=== PATIENT | female | born 1940 | race Caucasian/White ===

== ENCOUNTER 2017-05-12 01:27 | Emergency (ER) | payer MEDICARE ==
[~2017-05-12] VITALS: Ht 172.7 cm; Wt 70.3 kg
[~2017-05-12 01:27] MED LIST: ACET325 PO; ALBU3IS INH; ALBU90I; ALBU90OI INH; ALBU90OI6 INH; ALBUTEROL INH; ALEN70 PO; AMIT25; AMIT25 PO; AMIT50 PO; AMLO10 PO; ASPI81CH PO; AZIT250 PO; BRIM.15SO OU; Brovana15 MCG/2 M INH; CALCNI; CEFU250 PO; CELE200 PO; CHOL10002 PO; Calcarb 600 W-1 EACH PO; ENOX100I SQ; ENOX40I SQ; FENT75TP TOP; FIBE4P PO; FLUSAL1005 IH; FLUSAL2505; FLUT220OIA INH; FOLI1 PO; FURO40 PO; Flunisolide25 ML NS; GUAI600T33 PO; HYDACE5 PO; HYDCHL25; HYDCHL25 PO; HYDSUL200; HYDSUL200 PO; LANS15EC; LANS30EC PO; LATA.005SO OU; LEFL20 PO; METO50 PO; METTREX2.5 PO; MONT10T; MONT10T PO; MULVITMINF PO; OMEP20ER PO; OMEPRAZOLE MAGN20 MG PO; ONDA4ODT MM; OXYACE5T PO; OXYC5 PO; OXYGEN; POTCHL10ER PO; POTCHL20ER; POTCHL20ER PO; PRED1 PO; PRED10 PO; PRED20 PO; PRED5; PROLIA60 MG/1 ML SC; ROPI.25 PO; TRAM50 PO; VITAMIN D2000 UNIT PO; Voltaren100 GM TOP; WARF3 PO; WARF4 PO; WARF5 PO; Xalatan2.5 ML BOTHEYES; ZAFI20 PO; [UNRECOGNIZED DRUG - REMARK]
[2017-05-12] MEDS ORDERED: PRED1 PO (02:53)
== END 2017-05-12 03:35 | disposition home or self-care (01) ==
LOC: ER 01:27
DX: I10 Essential (primary) hypertension (principal); Z88.2 Allergy status to sulfonamides; Z88.8 Allergy status to other drugs, medicaments and biological substances; Z79.899 Other long term (current) drug therapy; Z79.52 Long term (current) use of systemic steroids; Z79.51 Long term (current) use of inhaled steroids; Z79.01 Long term (current) use of anticoagulants
CPT/HCPCS: 99283

== ENCOUNTER 2017-07-21 10:49 | Emergency (ER) | END 2017-07-21 15:33 | disposition home or self-care (01) ==

== ENCOUNTER 2018-02-11 17:35 | Inpatient (IN) | payer MEDICARE ==
[~2018-02-11] VITALS: Ht 172.7 cm; Wt 80.3 kg
[2018-02-11] MEDS ORDERED: ELIQUIS5 MG PO (18:00)
[2018-02-11 18:09] LABS: BASOPHILS ABSOLUTE AUTO 0.02 K/mm3 (0.00-0.23); BASOPHILS PERCENT AUTO 0 % (0-2); EOSINOPHILS ABSOLUTE AUTO 0.06 K/mm3 (0.00-0.68); EOSINOPHILS PERCENT AUTO 1 % (0-6); Hematocrit 46.3 % (33.0-51.0); Hemoglobin 14.7 g/dL (11.5-16.0); IMMATURE GRAN ABSOLUTE AUTO 0.02 K/mm3 (0.00-0.10); IMMATURE GRAN PERCENT AUTO 0 % (0-1); LYMPHOCYTES ABSOLUTE AUTO 0.97 K/mm3 (0.84-5.20); LYMPHOCYTES PERCENT AUTO 12 % (21-46); MONOCYTES ABSOLUTE AUTO 0.35 K/mm3 (0.16-1.47); MONOCYTES PERCENT AUTO 4 % (4-13); Mean Corpuscular HGB 30.2 pg (26.0-34.0); Mean Corpuscular HGB Conc 31.7 g/dL (31.5-36.5); Mean Corpuscular Volume 95 fL (80-100); Mean Platelet Volume 10.9 fL (9.1-12.4); NEUTROPHILS ABSOLUTE AUTO 6.91 K/mm3 (1.96-9.15); NEUTROPHILS PERCENT AUTO 83 % (41-73); Platelet Count 185 K/mm3 (150-400); RDW Coefficient Variation 12.8 % (11.7-14.2); RDW Standard Deviation 45.1 fL (35.1-46.3); Red Blood Cell Count 4.86 M/mm3 (3.80-5.20); White Blood Cell Count 8.33 K/mm3 (4.00-11.30)
[2018-02-11] MEDS ORDERED: STIOLTO RESPIMAT4 GM INH (18:20)
[2018-02-11 18:24] LABS: Alanine Aminotransfer (ALT/SGP 23 U/L (12-78); Albumin, Blood 3.6 g/dL (3.4-5.0); Albumin/Globulin Ratio 0.9 (0.8-1.8); Alk Phos 62 U/L (50-136); Anion Gap 7 mmol/L (6-16); Aspartate Aminotrans (AST/SGOT 23 U/L (12-37); Bilirubin, Total 0.5 mg/dL (0.1-1.0); Blood Urea Nitrogen 22 mg/dL (8-24); Bun/Creatinine Ratio 28.5 (12.0-20.0); CO2, Blood 25 mmol/L (21-32); Chloride, Blood 105 mmol/L (98-108); Creatinine, Blood 0.77 mg/dL (0.40-1.00); Globulin, Blood 3.8 g/dL (2.2-4.0); Glomerular Filtration Rate >60 (60-); Glucose, Blood 138 mg/dL (70-99); Potassium, Blood 4.5 mmol/L (3.5-5.5); Sodium, Blood 137 mmol/L (136-145); Total Protein, Blood 7.4 g/dL (6.4-8.2); Troponin I 0.019 ng/mL (0.000-0.040)
[2018-02-11 22:12] LABS: Adenovirus Not Detected (NOT DETECT); Bordetella pertussis Not Detected (NOT DETECT); Chlamydophila pneumoniae Not Detected (NOT DETECT); Coronavirus 229E Not Detected (NOT DETECT); Coronavirus HKU1 Not Detected (NOT DETECT); Coronavirus NL63 Not Detected (NOT DETECT); Coronavirus OC43 Not Detected (NOT DETECT); Human Metapneumovirus Not Detected (NOT DETECT); Human Rhinovirus/Enterovirus Not Detected (NOT DETECT); Influenza A/2009-H1 Not Detected (NOT DETECT); Influenza A/H1 Not Detected (NOT DETECT); Influenza A/H3 Not Detected (NOT DETECT); Influenza B Not Detected (NOT DETECT); Mycoplasma pneumoniae Not Detected (NOT DETECT); Parainfluenza Virus 1 Not Detected (NOT DETECT); Parainfluenza Virus 2 Not Detected (NOT DETECT); Parainfluenza Virus 3 Not Detected (NOT DETECT); Parainfluenza Virus 4 Not Detected (NOT DETECT); Respiratory Syncytial Virus Not Detected (NOT DETECT)
[2018-02-11] MEDS ORDERED: CALCA400CH PO (22:21)
[2018-02-11 23:30] LABS: Influenza A Not Detected (NOT DETECT)
[2018-02-12 02:44] LABS: Hematocrit 44.4 % (33.0-51.0); Hemoglobin 14.5 g/dL (11.5-16.0); Mean Corpuscular HGB 30.3 pg (26.0-34.0); Mean Corpuscular HGB Conc 32.7 g/dL (31.5-36.5); Mean Corpuscular Volume 93 fL (80-100); Mean Platelet Volume 11.2 fL (9.1-12.4); Platelet Count 158 K/mm3 (150-400); RDW Coefficient Variation 12.7 % (11.7-14.2); RDW Standard Deviation 43.1 fL (35.1-46.3); Red Blood Cell Count 4.79 M/mm3 (3.80-5.20)
[2018-02-12 02:56] LABS: Alanine Aminotransfer (ALT/SGP 19 U/L (12-78); Albumin, Blood 3.1 g/dL (3.4-5.0); Albumin/Globulin Ratio 0.8 (0.8-1.8); Alk Phos 57 U/L (50-136); Anion Gap 9 mmol/L (6-16); Aspartate Aminotrans (AST/SGOT 21 U/L (12-37); Bilirubin, Total 0.6 mg/dL (0.1-1.0); Blood Urea Nitrogen 18 mg/dL (8-24); Bun/Creatinine Ratio 29.1 (12.0-20.0); CO2, Blood 25 mmol/L (21-32); Calcium, Blood 8.9 mg/dL (8.5-10.1); Chloride, Blood 107 mmol/L (98-108); Creatinine, Blood 0.62 mg/dL (0.40-1.00); Globulin, Blood 3.9 g/dL (2.2-4.0); Glomerular Filtration Rate >60 (60-); Glucose, Blood 150 mg/dL (70-99); Sodium, Blood 141 mmol/L (136-145)
[2018-02-12 02:57] LABS: Troponin I 0.384 ng/mL (0.000-0.040)
[2018-02-12 05:34] LABS: International Normalized Ratio 1.32; Prothrombin Time Results 13.4 Sec (9.7-11.5)
[2018-02-12 10:30] LABS: Troponin I 0.339 ng/mL (0.000-0.040)
[2018-02-15 04:05] LABS: Hematocrit 42.9 % (33.0-51.0); Hemoglobin 13.5 g/dL (11.5-16.0); Mean Corpuscular HGB Conc 31.5 g/dL (31.5-36.5); Mean Corpuscular Volume 95 fL (80-100); Mean Platelet Volume 11.2 fL (9.1-12.4); Platelet Count 154 K/mm3 (150-400); RDW Coefficient Variation 13.2 % (11.7-14.2); RDW Standard Deviation 45.6 fL (35.1-46.3); White Blood Cell Count 6.52 K/mm3 (4.00-11.30)
[2018-02-15 04:23] LABS: Anion Gap 7 mmol/L (6-16); Blood Urea Nitrogen 22 mg/dL (8-24); Bun/Creatinine Ratio 29.7 (12.0-20.0); CO2, Blood 27 mmol/L (21-32); Calcium, Blood 8.8 mg/dL (8.5-10.1); Chloride, Blood 105 mmol/L (98-108); Creatinine, Blood 0.74 mg/dL (0.40-1.00); Glomerular Filtration Rate >60 (60-); Glucose, Blood 105 mg/dL (70-99); Potassium, Blood 3.7 mmol/L (3.5-5.5); Sodium, Blood 139 mmol/L (136-145)
[2018-02-15] MEDS ORDERED: METO25ER PO (10:00)
[2018-02-15] MEDS ORDERED: ASPI81CH PO (10:01)
== END 2018-02-15 12:48 | disposition home or self-care (01) | DRG 282 ==
LOC: ER 17:35 → PCU 17:36 → ER 21:42 → PCU 21:42
PROVIDERS: Emergency Medicine; Internal Medicine
PROC: 4A023N7 Measurement of Cardiac Sampling and Pressure, Left Heart, Percutaneous Approach (ICD-10-PCS; principal; 2018-02-14)
PROC: B211YZZ Fluoroscopy of Multiple Coronary Arteries using Other Contrast (ICD-10-PCS; 2018-02-14)
DX: I21.4 Non-ST elevation (NSTEMI) myocardial infarction (principal); I10 Essential (primary) hypertension; R79.89 Other specified abnormal findings of blood chemistry; I48.0 Paroxysmal atrial fibrillation; G25.81 Restless legs syndrome; J45.909 Unspecified asthma, uncomplicated; M06.9 Rheumatoid arthritis, unspecified; J44.9 Chronic obstructive pulmonary disease, unspecified; K21.9 Gastro-esophageal reflux disease without esophagitis
CPT/HCPCS: 36415; 71260; 78452; 80048; 80053; 82550; 83605; 83735; 83880; 84484; 85025; 85027; 85379; 85610; 85730; 87040; 87486; 87581; 87633; 87798; 93005; 93010; 93017; 93306; 93458; 94640; 94760; 96374; 96376; 99152; 99153; 99285-25; A9500; C1769; C1894; G0378; J0706; J1100; J1644; J1956; J2250; J2785; J3010; J7030; Q9967

== ENCOUNTER 2019-02-24 00:30 | Day surgery (SDC) | payer MEDICARE ==
[~2019-02-24 00:30] MED LIST changes: +CALCA400CH PO; +ELIQUIS5 MG PO; +METO25ER PO; +STIOLTO RESPIMAT4 GM INH
== END 2019-02-24 23:24 | disposition home or self-care (01) ==
LOC: WOUND 00:30
DX: L97.522 Non-pressure chronic ulcer of other part of left foot with fat layer exposed (principal); I10 Essential (primary) hypertension; J45.909 Unspecified asthma, uncomplicated; G47.33 Obstructive sleep apnea (adult) (pediatric); G89.4 Chronic pain syndrome; G25.81 Restless legs syndrome; Z88.8 Allergy status to other drugs, medicaments and biological substances; Z88.2 Allergy status to sulfonamides; Z79.899 Other long term (current) drug therapy; Z79.82 Long term (current) use of aspirin
CPT/HCPCS: 87070; 87075; 87077; 87147; 87186; 87205; G0463

== ENCOUNTER 2019-03-08 12:53 | Emergency (ER) | payer MEDICARE ==
[~2019-03-08] VITALS: Ht 172.7 cm; Wt 86.6 kg
[2019-03-08 13:34] LABS: Source, Urine Catheter
[2019-03-08 13:41] LABS: BASOPHILS ABSOLUTE AUTO 0.03 K/mm3 (0.00-0.23); BASOPHILS PERCENT AUTO 0 % (0-2); EOSINOPHILS PERCENT AUTO 1 % (0-6); Hematocrit 45.2 % (33.0-51.0); IMMATURE GRAN ABSOLUTE AUTO 0.07 K/mm3 (0.00-0.10); IMMATURE GRAN PERCENT AUTO 1 % (0-1); LYMPHOCYTES ABSOLUTE AUTO 1.02 K/mm3 (0.84-5.20); LYMPHOCYTES PERCENT AUTO 11 % (21-46); MONOCYTES ABSOLUTE AUTO 1.21 K/mm3 (0.16-1.47); MONOCYTES PERCENT AUTO 13 % (4-13); Mean Corpuscular HGB 29.1 pg (26.0-34.0); Mean Corpuscular Volume 94 fL (80-100); Mean Platelet Volume 10.6 fL (9.1-12.4); NEUTROPHILS ABSOLUTE AUTO 7.25 K/mm3 (1.96-9.15); NEUTROPHILS PERCENT AUTO 75 % (41-73); Platelet Count 179 K/mm3 (150-400); RDW Coefficient Variation 13.5 % (11.7-14.2); RDW Standard Deviation 45.7 fL (35.1-46.3); Red Blood Cell Count 4.81 M/mm3 (3.80-5.20); White Blood Cell Count 9.68 K/mm3 (4.00-11.30)
[2019-03-08 13:53] LABS: Bilirubin, Urine Neg (Neg); Blood, Urine 1+ (Neg); Glucose Qualitative, Urine Neg (Neg); Ketones, Urine Neg (Neg); Leukocyte Esterase, Urine Neg (Neg); Nitrite, Urine Neg (Neg); Protein, Urine 1+ (Neg); Specific Gravity, Urine 1.025 (1.003-1.022); Urobilinogen, Urine NORM (Normal)
[2019-03-08 14:02] LABS: Alanine Aminotransfer (ALT/SGP 14 U/L (12-78); Albumin, Blood 3.4 g/dL (3.4-5.0); Albumin/Globulin Ratio 0.9 (0.8-1.8); Alk Phos 80 U/L (50-136); Anion Gap 6 mmol/L (6-16); Aspartate Aminotrans (AST/SGOT 14 U/L (12-37); Bilirubin, Total 0.8 mg/dL (0.1-1.0); Blood Urea Nitrogen 17 mg/dL (8-24); Bun/Creatinine Ratio 21.7 (12.0-20.0); CO2, Blood 28 mmol/L (21-32); Calcium, Blood 10.1 mg/dL (8.5-10.1); Chloride, Blood 105 mmol/L (98-108); Creatinine, Blood 0.79 mg/dL (0.40-1.00); Globulin, Blood 3.9 g/dL (2.2-4.0); Glomerular Filtration Rate >60 (60-); Glucose, Blood 104 mg/dL (70-99); Sodium, Blood 139 mmol/L (136-145); Total Protein, Blood 7.3 g/dL (6.4-8.2)
[2019-03-08 14:17] LABS: Appearance, Urine Clear (Clear); Color, Urine Yellow (P-Yellow)
[2019-03-08 14:18] LABS: Bacteria Few /hpf; Red Blood Cells, Urine 0-2 /hpf (0-2); Squamous Epithelial Cells Rare /hpf (Few); White Blood Cells, Urine Rare /hpf (0-5)
[2019-03-08] MEDS ORDERED: Norco 5-325 Ta1 EACH PO (16:13)
== END 2019-03-08 16:31 | disposition home or self-care (01) ==
LOC: ER 12:53
PROVIDERS: Emergency Medicine
DX: M54.6 Pain in thoracic spine (principal); J44.9 Chronic obstructive pulmonary disease, unspecified; I10 Essential (primary) hypertension; I48.0 Paroxysmal atrial fibrillation; Z79.899 Other long term (current) drug therapy; Z79.51 Long term (current) use of inhaled steroids; Z79.01 Long term (current) use of anticoagulants; Z79.82 Long term (current) use of aspirin
CPT/HCPCS: 36415; 71046; 72070; 80053; 81001; 85025; 96374; 96375; 99284-25; J1170; J1885; P9612

== ENCOUNTER → 2019-04-04 | Outpatient (CLI) | payer MEDICARE ==
[~2019-04-04] MED LIST changes: +Aspirin EC81 MG PO; +BREO ELLIPTA 11 EACH INH; -METO25ER PO; +Norco 5-325 Ta1 EACH PO; -OMEPRAZOLE MAGN20 MG PO; +OSEL75CA PO; +PRED10; +TOPROL XL25 MG PO
[2019-04-04 18:13] LABS: BASOPHILS ABSOLUTE AUTO 0.02 K/mm3 (0.00-0.23); BASOPHILS PERCENT AUTO 0 % (0-2); EOSINOPHILS ABSOLUTE AUTO 0.02 K/mm3 (0.00-0.68); EOSINOPHILS PERCENT AUTO 0 % (0-6); Hematocrit 42.2 % (33.0-51.0); Hemoglobin 13.2 g/dL (11.5-16.0); IMMATURE GRAN ABSOLUTE AUTO 0.03 K/mm3 (0.00-0.10); IMMATURE GRAN PERCENT AUTO 0 % (0-1); LYMPHOCYTES ABSOLUTE AUTO 0.82 K/mm3 (0.84-5.20); LYMPHOCYTES PERCENT AUTO 12 % (21-46); MONOCYTES ABSOLUTE AUTO 0.55 K/mm3 (0.16-1.47); MONOCYTES PERCENT AUTO 8 % (4-13); Mean Corpuscular HGB 29.1 pg (26.0-34.0); Mean Corpuscular HGB Conc 31.3 g/dL (31.5-36.5); Mean Corpuscular Volume 93 fL (80-100); Mean Platelet Volume 10.5 fL (9.1-12.4); NEUTROPHILS ABSOLUTE AUTO 5.58 K/mm3 (1.96-9.15); NEUTROPHILS PERCENT AUTO 80 % (41-73); Platelet Count 191 K/mm3 (150-400); RDW Coefficient Variation 13.3 % (11.7-14.2); RDW Standard Deviation 45.7 fL (35.1-46.3); Red Blood Cell Count 4.53 M/mm3 (3.80-5.20); White Blood Cell Count 7.02 K/mm3 (4.00-11.30)
== END | disposition home or self-care (01) ==
LOC: LAB SHORT 18:10 → LAB 18:10
PROVIDERS: Physician Assistant Medical
DX: L03.115 Cellulitis of right lower limb (principal)
CPT/HCPCS: 85025

== ENCOUNTER 2019-04-07 08:10 | Observation (INO) | payer MEDICARE ==
[~2019-04-07] VITALS: Ht 172.7 cm; Wt 85.9 kg
[~2019-04-07 08:10] MED LIST changes: -BREO ELLIPTA 11 EACH INH; -OSEL75CA PO; -PRED10
[2019-04-07 08:57] LABS: BASOPHILS ABSOLUTE AUTO 0.01 K/mm3 (0.00-0.23); BASOPHILS PERCENT AUTO 0 % (0-2); EOSINOPHILS ABSOLUTE AUTO 0.01 K/mm3 (0.00-0.68); EOSINOPHILS PERCENT AUTO 0 % (0-6); Hematocrit 42.9 % (33.0-51.0); Hemoglobin 13.2 g/dL (11.5-16.0); IMMATURE GRAN ABSOLUTE AUTO 0.02 K/mm3 (0.00-0.10); IMMATURE GRAN PERCENT AUTO 0 % (0-1); LYMPHOCYTES ABSOLUTE AUTO 0.81 K/mm3 (0.84-5.20); LYMPHOCYTES PERCENT AUTO 17 % (21-46); MONOCYTES ABSOLUTE AUTO 0.68 K/mm3 (0.16-1.47); MONOCYTES PERCENT AUTO 14 % (4-13); Mean Corpuscular HGB 29.3 pg (26.0-34.0); Mean Corpuscular HGB Conc 30.8 g/dL (31.5-36.5); Mean Corpuscular Volume 95 fL (80-100); Mean Platelet Volume 10.4 fL (9.1-12.4); NEUTROPHILS ABSOLUTE AUTO 3.36 K/mm3 (1.96-9.15); NEUTROPHILS PERCENT AUTO 69 % (41-73); Platelet Count 124 K/mm3 (150-400); RDW Coefficient Variation 13.1 % (11.7-14.2); Red Blood Cell Count 4.51 M/mm3 (3.80-5.20); White Blood Cell Count 4.89 K/mm3 (4.00-11.30)
[2019-04-07 09:17] LABS: Alanine Aminotransfer (ALT/SGP 10 U/L (12-78); Albumin, Blood 3.3 g/dL (3.4-5.0); Albumin/Globulin Ratio 0.8 (0.8-1.8); Alk Phos 81 U/L (50-136); Anion Gap 8 mmol/L (6-16); Aspartate Aminotrans (AST/SGOT 16 U/L (12-37); Bilirubin, Total 0.4 mg/dL (0.1-1.0); Blood Urea Nitrogen 13 mg/dL (8-24); Bun/Creatinine Ratio 17.9 (12.0-20.0); CO2, Blood 25 mmol/L (21-32); Calcium, Blood 9.3 mg/dL (8.5-10.1); Chloride, Blood 105 mmol/L (98-108); Creatinine, Blood 0.73 mg/dL (0.40-1.00); Globulin, Blood 4.3 g/dL (2.2-4.0); Glomerular Filtration Rate >60 (60-); Glucose, Blood 122 mg/dL (70-99); Potassium, Blood 3.6 mmol/L (3.5-5.5); Sodium, Blood 138 mmol/L (136-145); Total Protein, Blood 7.6 g/dL (6.4-8.2); Troponin I 0.022 ng/mL (0.000-0.040)
[2019-04-07 09:41] LABS: Influenza A Positive (NEGATIVE); Influenza B Negative (NEGATIVE)
[2019-04-07] MEDS ORDERED: BREO ELLIPTA 11 EACH INH (12:16)
--- NOTE | 2019-04-07 16:49 | NUR ---
PT ADMITTED FROM ER THIS SHIFT. SHE IS ALERT AND ORIENTED AND ABLE TO EXPRESS ANY NEEDS. PT ABLE TO TRANSFER FROM BED TO BSC WITH JUST SBA. SHE HAS STRESS INCONTINENCE BUT IS ABLE TO GET TO THE COMMODE MOST OF THE TIME. DRESSINGS WERE CHANGES TO HER FEET AT ADMIT AND PICTURES TAKEN AND IN CHART. CALL LIGHT WITHIN REACH.
--- NOTE | 2019-04-08 04:44 | NUR ---
WATER COMMISSIONER SUMMARY PT A/OX4. SLEPT WELL TONIGHT. STANDBY ASSIST UP TO BEDSIDE COMMODE BUT ALSO HAS URINARY URGENCY/INCONTIENCE. PT ON 2L O2 VIA NASAL CANNULA SATTING IN LOW TO MID 90% PT DOES NOT WEAR O2 AT BASELINE. VSS. DRESSING ON FEET C/D/I. NO ACUTE CHANGES. WILL CONTINUE TO MONITOR.
[2019-04-08 05:45] LABS: BASOPHILS PERCENT AUTO 0 % (0-2); EOSINOPHILS PERCENT AUTO 0 % (0-6); Hematocrit 40.7 % (33.0-51.0); Hemoglobin 12.5 g/dL (11.5-16.0); IMMATURE GRAN PERCENT AUTO 0 % (0-1); LYMPHOCYTES ABSOLUTE AUTO 0.33 K/mm3 (0.84-5.20); LYMPHOCYTES PERCENT AUTO 13 % (21-46); MONOCYTES ABSOLUTE AUTO 0.49 K/mm3 (0.16-1.47); MONOCYTES PERCENT AUTO 19 % (4-13); Mean Corpuscular HGB 28.7 pg (26.0-34.0); Mean Corpuscular HGB Conc 30.7 g/dL (31.5-36.5); Mean Corpuscular Volume 93 fL (80-100); Mean Platelet Volume 10.6 fL (9.1-12.4); NEUTROPHILS ABSOLUTE AUTO 1.77 K/mm3 (1.96-9.15); NEUTROPHILS PERCENT AUTO 68 % (41-73); Platelet Count 129 K/mm3 (150-400); RDW Coefficient Variation 13.1 % (11.7-14.2); RDW Standard Deviation 44.8 fL (35.1-46.3); Red Blood Cell Count 4.36 M/mm3 (3.80-5.20); White Blood Cell Count 2.59 K/mm3 (4.00-11.30)
[2019-04-08 06:03] LABS: Alanine Aminotransfer (ALT/SGP 12 U/L (12-78); Albumin/Globulin Ratio 0.8 (0.8-1.8); Alk Phos 69 U/L (50-136); Anion Gap 4 mmol/L (6-16); Aspartate Aminotrans (AST/SGOT 13 U/L (12-37); Bilirubin, Total 0.3 mg/dL (0.1-1.0); Blood Urea Nitrogen 15 mg/dL (8-24); Bun/Creatinine Ratio 24.9 (12.0-20.0); CO2, Blood 29 mmol/L (21-32); Calcium, Blood 9.3 mg/dL (8.5-10.1); Chloride, Blood 104 mmol/L (98-108); Globulin, Blood 3.8 g/dL (2.2-4.0); Glomerular Filtration Rate >60 (60-); Glucose, Blood 110 mg/dL (70-99); Magnesium, Blood 1.9 mg/dL (1.6-2.4); Sodium, Blood 137 mmol/L (136-145); Total Protein, Blood 6.8 g/dL (6.4-8.2)
--- NOTE | 2019-04-08 17:54 | NUR ---
NO ACUTE CHANGES TO PATIENT THIS SHIFT. SHE HAS BEEN UP IN CHAIR AND IS ABLE TO TRANSFER TO BSC. HER COUGH HAS BEEN PRODUCTIVE THIS SHIFT. NO DISTRESS NOTED.
--- NOTE | 2019-04-09 03:41 | NUR ---
SHIFT SUMMARY: 78 Y/O FEMALE RESTED COMFORTABLY ALL SHIFT WHILE WEARING O2 AT 2L/M PER NASAL CANNULA; DENIES PAIN OR NAUSEA; ALERT AND ORIENTED X 4; CALLS FOR ASSISTANCE; BED ALARM APPLIED FOR SAFETY, BED LOW POSITION WITH CALL LIGHT AT SIDE.
[2019-04-09 05:19] LABS: BASOPHILS PERCENT AUTO 0 % (0-2); EOSINOPHILS PERCENT AUTO 0 % (0-6); Hematocrit 39.9 % (33.0-51.0); Hemoglobin 12.3 g/dL (11.5-16.0); IMMATURE GRAN ABSOLUTE AUTO 0.01 K/mm3 (0.00-0.10); IMMATURE GRAN PERCENT AUTO 0 % (0-1); LYMPHOCYTES ABSOLUTE AUTO 0.38 K/mm3 (0.84-5.20); LYMPHOCYTES PERCENT AUTO 13 % (21-46); MONOCYTES ABSOLUTE AUTO 0.52 K/mm3 (0.16-1.47); MONOCYTES PERCENT AUTO 17 % (4-13); Mean Corpuscular HGB 28.9 pg (26.0-34.0); Mean Corpuscular HGB Conc 30.8 g/dL (31.5-36.5); Mean Corpuscular Volume 94 fL (80-100); Mean Platelet Volume 10.6 fL (9.1-12.4); NEUTROPHILS ABSOLUTE AUTO 2.13 K/mm3 (1.96-9.15); NEUTROPHILS PERCENT AUTO 70 % (41-73); Platelet Count 145 K/mm3 (150-400); RDW Coefficient Variation 13.2 % (11.7-14.2); RDW Standard Deviation 44.8 fL (35.1-46.3); Red Blood Cell Count 4.26 M/mm3 (3.80-5.20); White Blood Cell Count 3.04 K/mm3 (4.00-11.30)
[2019-04-09 05:42] LABS: Albumin, Blood 2.8 g/dL (3.4-5.0); Anion Gap 5 mmol/L (6-16); Blood Urea Nitrogen 17 mg/dL (8-24); Bun/Creatinine Ratio 25.9 (12.0-20.0); CO2, Blood 27 mmol/L (21-32); Calcium, Blood 9.2 mg/dL (8.5-10.1); Chloride, Blood 106 mmol/L (98-108); Creatinine, Blood 0.66 mg/dL (0.40-1.00); Glomerular Filtration Rate >60 (60-); Glucose, Blood 119 mg/dL (70-99); Phosphorus, Blood 3.1 mg/dL (2.5-4.9); Potassium, Blood 4.7 mmol/L (3.5-5.5); Sodium, Blood 138 mmol/L (136-145)
[2019-04-09] MEDS ORDERED: PRED10 (11:56)
[2019-04-09] MEDS ORDERED: GUAI600T33 PO (11:58)
[2019-04-09] MEDS ORDERED: OSEL75CA PO (11:59)
--- NOTE | 2019-04-09 13:38 | NUR ---
DISCHARGE PT UP IN CHAIR THIS AM FOR BF, STATE CONTINUING REGISTERED NURSE SURGICAL SERVICES COUGH, FATIGUE HOWEVER STATE FEELING IMPROVED HOPEFUL FOR D/C HOME TODAY. DR ESCAMILLA IN TO SEE HER, PROVIDE D/C ORDERS. [facility] NOTIFIED PT COMING HOME. ORDERS FAXED TO [facility]. IV D/C INTACT. WOUND CARE TO R ANKLE & BETWEEN L BIG/2ND TOE PROVIDED. PRODUCT SAFETY ENGINEER ASSIST PT TO DRESS/GATHER BELONGINGS. RN D/C POLY PACKER AND HEAT SEALER ARRANGE W/C VAN TRANSPORTATION FOR 1400. PT IS PLEASANT, APPRECIATIVE.
--- NOTE | 2019-04-09 15:19 | NUR ---
CONTACTED GVR R/T PRESCRIPTIONS @ [facility], THEY STATE WILL ASSIST PT TO ASSURE SHE WILL BE ABLE TO GEOPHYSICIST MEDICATIONS THIS AFTERNOON OR IN AM @ LATEST.
== END 2019-04-09 14:00 | disposition home or self-care (01) ==
LOC: ER 08:10 → MEDS 08:11 → ER 11:14 → MEDS 11:14 → ENPENDDIS 04-09 11:26 → MEDS 04-09 14:00
PROVIDERS: Emergency Medicine; Family Medicine; Nurse Practitioner Acute Care; ADMIT Hospitalist
DX: J09.X2 Influenza due to identified novel influenza A virus with other respiratory manifestations (principal); J96.01 Acute respiratory failure with hypoxia; J45.901 Unspecified asthma with (acute) exacerbation; I48.20 Chronic atrial fibrillation, unspecified; I10 Essential (primary) hypertension; G25.81 Restless legs syndrome; M06.9 Rheumatoid arthritis, unspecified; I70.235 Atherosclerosis of native arteries of right leg with ulceration of other part of foot; L97.519 Non-pressure chronic ulcer of other part of right foot with unspecified severity; K21.9 Gastro-esophageal reflux disease without esophagitis; Z79.01 Long term (current) use of anticoagulants; Z95.0 Presence of cardiac pacemaker; Z79.899 Other long term (current) drug therapy; Z79.52 Long term (current) use of systemic steroids; Z88.8 Allergy status to other drugs, medicaments and biological substances; Z88.2 Allergy status to sulfonamides
CPT/HCPCS: 36415; 71046; 80053; 80069; 83735; 83880; 84484; 85025; 87804; 93005; 93010; 94640; 94760; 94761; 99285-25; A9270; A9270-GY; G0378; J7512

== ENCOUNTER 2019-04-15 19:26 | Emergency (ER) | payer MEDICARE ==
[~2019-04-15] VITALS: Ht 172.7 cm; Wt 86.6 kg
[~2019-04-15 19:26] MED LIST changes: +BREO ELLIPTA 11 EACH INH; +OSEL75CA PO; +PRED10
[2019-04-15 21:28] LABS: Source, Urine Clean Catch
[2019-04-15 21:33] LABS: Appearance, Urine Cloudy (Clear); Bilirubin, Urine Neg (Neg); Blood, Urine 2+ (Neg); Color, Urine Yellow (P-Yellow); Glucose Qualitative, Urine Neg (Neg); Ketones, Urine Neg (Neg); Leukocyte Esterase, Urine 3+ (Neg); Nitrite, Urine Pos (Neg); Protein, Urine 2+ (Neg); Specific Gravity, Urine 1.025 (1.003-1.022); Urobilinogen, Urine NORM (Normal)
[2019-04-15 21:42] LABS: Bacteria Many /hpf; Red Blood Cells, Urine 0-2 /hpf (0-2); Squamous Epithelial Cells Not Seen /hpf (Few); White Blood Cells, Urine TNTC /hpf (0-5)
[2019-04-15] MEDS ORDERED: CEPH500 PO (21:44)
== END 2019-04-15 22:11 | disposition home or self-care (01) ==
LOC: ER 19:26
PROVIDERS: Physician Assistant
DX: N39.0 Urinary tract infection, site not specified (principal); G89.29 Other chronic pain; Z88.2 Allergy status to sulfonamides; Z88.8 Allergy status to other drugs, medicaments and biological substances; Z79.899 Other long term (current) drug therapy; Z79.52 Long term (current) use of systemic steroids; J45.909 Unspecified asthma, uncomplicated
CPT/HCPCS: 72100; 81001; 87077; 87086; 87186; 96374; 99284-25; A9270-GY; J1885

== ENCOUNTER 2019-04-21 12:08 | Emergency (ER) | payer MEDICARE ==
[~2019-04-21] VITALS: Ht 180.3 cm; Wt 86.6 kg
[~2019-04-21 12:08] MED LIST changes: +CEPH500 PO
[2019-04-21 13:27] LABS: BASOPHILS ABSOLUTE AUTO 0.03 K/mm3 (0.00-0.23); BASOPHILS PERCENT AUTO 0 % (0-2); EOSINOPHILS ABSOLUTE AUTO 0.07 K/mm3 (0.00-0.68); EOSINOPHILS PERCENT AUTO 1 % (0-6); Hematocrit 45.3 % (33.0-51.0); Hemoglobin 14.4 g/dL (11.5-16.0); IMMATURE GRAN ABSOLUTE AUTO 0.06 K/mm3 (0.00-0.10); IMMATURE GRAN PERCENT AUTO 0 % (0-1); LYMPHOCYTES PERCENT AUTO 6 % (21-46); MONOCYTES ABSOLUTE AUTO 1.14 K/mm3 (0.16-1.47); MONOCYTES PERCENT AUTO 8 % (4-13); Mean Corpuscular HGB Conc 31.8 g/dL (31.5-36.5); Mean Platelet Volume 11.1 fL (9.1-12.4); NEUTROPHILS ABSOLUTE AUTO 11.92 K/mm3 (1.96-9.15); NEUTROPHILS PERCENT AUTO 85 % (41-73); Platelet Count 232 K/mm3 (150-400); RDW Coefficient Variation 13.1 % (11.7-14.2); Red Blood Cell Count 4.97 M/mm3 (3.80-5.20); White Blood Cell Count 14.02 K/mm3 (4.00-11.30)
[2019-04-21 13:35] LABS: Mean Corpuscular Volume 91 fL (80-100)
[2019-04-21 13:39] LABS: Alanine Aminotransfer (ALT/SGP 14 U/L (12-78); Albumin, Blood 3.4 g/dL (3.4-5.0); Albumin/Globulin Ratio 0.8 (0.8-1.8); Alk Phos 94 U/L (50-136); Anion Gap 4 mmol/L (6-16); Aspartate Aminotrans (AST/SGOT 13 U/L (12-37); Bilirubin, Total 1.1 mg/dL (0.1-1.0); Blood Urea Nitrogen 21 mg/dL (8-24); CO2, Blood 29 mmol/L (21-32); Calcium, Blood 10.1 mg/dL (8.5-10.1); Chloride, Blood 105 mmol/L (98-108); Creatinine, Blood 0.68 mg/dL (0.40-1.00); Globulin, Blood 4.3 g/dL (2.2-4.0); Glomerular Filtration Rate >60 (60-); Glucose, Blood 120 mg/dL (70-99); Potassium, Blood 4.2 mmol/L (3.5-5.5); Sodium, Blood 138 mmol/L (136-145); Total Protein, Blood 7.7 g/dL (6.4-8.2); Troponin I <0.015 ng/mL (0.000-0.040)
== END 2019-04-21 15:40 | disposition home or self-care (01) ==
LOC: ER 12:08
PROVIDERS: Emergency Medicine
DX: J11.1 Influenza due to unidentified influenza virus with other respiratory manifestations (principal); R53.1 Weakness; J44.9 Chronic obstructive pulmonary disease, unspecified; I10 Essential (primary) hypertension; K21.9 Gastro-esophageal reflux disease without esophagitis; M06.9 Rheumatoid arthritis, unspecified; Z88.2 Allergy status to sulfonamides; Z79.899 Other long term (current) drug therapy
CPT/HCPCS: 36415; 71045; 80053; 83690; 83880; 84484; 85025; 93005; 93010; 99284-25

== ENCOUNTER 2019-05-03 08:17 | Inpatient (IN) | payer MEDICARE ==
[~2019-05-03] VITALS: Ht 172.7 cm; Wt 81.7 kg
[~2019-05-03 08:17] MED LIST changes: +THERA-D2000 UNIT PO; -VITAMIN D2000 UNIT PO
[2019-05-03 09:10] LABS: BASOPHILS ABSOLUTE AUTO 0.02 K/mm3 (0.00-0.23); BASOPHILS PERCENT AUTO 0 % (0-2); EOSINOPHILS ABSOLUTE AUTO 0.11 K/mm3 (0.00-0.68); EOSINOPHILS PERCENT AUTO 1 % (0-6); Hematocrit 43.2 % (33.0-51.0); Hemoglobin 13.2 g/dL (11.5-16.0); IMMATURE GRAN ABSOLUTE AUTO 0.04 K/mm3 (0.00-0.10); IMMATURE GRAN PERCENT AUTO 0 % (0-1); LYMPHOCYTES ABSOLUTE AUTO 0.96 K/mm3 (0.84-5.20); LYMPHOCYTES PERCENT AUTO 8 % (21-46); MONOCYTES ABSOLUTE AUTO 1.37 K/mm3 (0.16-1.47); MONOCYTES PERCENT AUTO 11 % (4-13); Mean Corpuscular HGB 28.4 pg (26.0-34.0); Mean Corpuscular HGB Conc 30.6 g/dL (31.5-36.5); Mean Corpuscular Volume 93 fL (80-100); NEUTROPHILS ABSOLUTE AUTO 10.01 K/mm3 (1.96-9.15); NEUTROPHILS PERCENT AUTO 80 % (41-73); Platelet Count 257 K/mm3 (150-400); RDW Coefficient Variation 13.3 % (11.7-14.2); RDW Standard Deviation 45.3 fL (35.1-46.3); Red Blood Cell Count 4.64 M/mm3 (3.80-5.20); White Blood Cell Count 12.51 K/mm3 (4.00-11.30)
[2019-05-03 09:34] LABS: Alanine Aminotransfer (ALT/SGP 14 U/L (12-78); Albumin, Blood 2.8 g/dL (3.4-5.0); Albumin/Globulin Ratio 0.6 (0.8-1.8); Alk Phos 85 U/L (50-136); Anion Gap 8 mmol/L (6-16); Aspartate Aminotrans (AST/SGOT 12 U/L (12-37); Bilirubin, Total 1.1 mg/dL (0.1-1.0); Blood Urea Nitrogen 18 mg/dL (8-24); CO2, Blood 25 mmol/L (21-32); Calcium, Blood 9.5 mg/dL (8.5-10.1); Chloride, Blood 104 mmol/L (98-108); Creatinine, Blood 0.75 mg/dL (0.40-1.00); Globulin, Blood 4.6 g/dL (2.2-4.0); Glomerular Filtration Rate >60 (60-); Glucose, Blood 130 mg/dL (70-99); Potassium, Blood 3.8 mmol/L (3.5-5.5); Sodium, Blood 137 mmol/L (136-145); Total Protein, Blood 7.4 g/dL (6.4-8.2)
[2019-05-03 11:20] LABS: PCO2 Arterial 26.8 mmHg (35-45); PO2 Arterial 72.8 mmHg (80-100); pH Blood Arterial 7.49 (7.35-7.45)
[2019-05-03 19:45] LABS: International Normalized Ratio 1.43
[2019-05-04 00:37] LABS: Adenovirus Not Detected (NOT DETECT); Bordetella pertussis Not Detected (NOT DETECT); Chlamydophila pneumoniae Not Detected (NOT DETECT); Coronavirus 229E Not Detected (NOT DETECT); Coronavirus HKU1 Not Detected (NOT DETECT); Coronavirus NL63 Not Detected (NOT DETECT); Coronavirus OC43 Not Detected (NOT DETECT); Human Metapneumovirus Not Detected (NOT DETECT); Human Rhinovirus/Enterovirus Not Detected (NOT DETECT); Influenza A/2009-H1 Not Detected (NOT DETECT); Influenza A/H1 Not Detected (NOT DETECT); Influenza A/H3 Not Detected (NOT DETECT); Influenza B Not Detected (NOT DETECT); Mycoplasma pneumoniae Not Detected (NOT DETECT); Parainfluenza Virus 1 Not Detected (NOT DETECT); Parainfluenza Virus 2 Not Detected (NOT DETECT); Parainfluenza Virus 3 Not Detected (NOT DETECT); Parainfluenza Virus 4 Not Detected (NOT DETECT); Respiratory Syncytial Virus Not Detected (NOT DETECT)
[2019-05-04] MEDS ORDERED: Mupirocin22 GM TOP (01:20)
[2019-05-04] MEDS ORDERED: PRED1 PO (01:23)
[2019-05-04] MEDS ORDERED: TRAM50 PO (01:24)
[2019-05-04 03:33] LABS: BASOPHILS ABSOLUTE AUTO 0.02 K/mm3 (0.00-0.23); BASOPHILS PERCENT AUTO 0 % (0-2); EOSINOPHILS PERCENT AUTO 0 % (0-6); Hematocrit 40.4 % (33.0-51.0); Hemoglobin 12.5 g/dL (11.5-16.0); IMMATURE GRAN ABSOLUTE AUTO 0.06 K/mm3 (0.00-0.10); IMMATURE GRAN PERCENT AUTO 0 % (0-1); LYMPHOCYTES ABSOLUTE AUTO 0.54 K/mm3 (0.84-5.20); LYMPHOCYTES PERCENT AUTO 4 % (21-46); MONOCYTES ABSOLUTE AUTO 1.26 K/mm3 (0.16-1.47); MONOCYTES PERCENT AUTO 9 % (4-13); Mean Corpuscular HGB 28.3 pg (26.0-34.0); Mean Corpuscular HGB Conc 30.9 g/dL (31.5-36.5); Mean Corpuscular Volume 92 fL (80-100); NEUTROPHILS ABSOLUTE AUTO 11.82 K/mm3 (1.96-9.15); NEUTROPHILS PERCENT AUTO 86 % (41-73); Platelet Count 204 K/mm3 (150-400); RDW Coefficient Variation 13.2 % (11.7-14.2); RDW Standard Deviation 44.5 fL (35.1-46.3); Red Blood Cell Count 4.41 M/mm3 (3.80-5.20)
[2019-05-04 03:54] LABS: Alanine Aminotransfer (ALT/SGP 12 U/L (12-78); Albumin, Blood 2.5 g/dL (3.4-5.0); Albumin/Globulin Ratio 0.5 (0.8-1.8); Alk Phos 78 U/L (50-136); Anion Gap 6 mmol/L (6-16); Aspartate Aminotrans (AST/SGOT 14 U/L (12-37); Bilirubin, Total 1.1 mg/dL (0.1-1.0); Blood Urea Nitrogen 23 mg/dL (8-24); Bun/Creatinine Ratio 24.7 (12.0-20.0); CO2, Blood 26 mmol/L (21-32); Calcium, Blood 9.5 mg/dL (8.5-10.1); Chloride, Blood 101 mmol/L (98-108); Creatinine, Blood 0.93 mg/dL (0.40-1.00); Globulin, Blood 4.7 g/dL (2.2-4.0); Glomerular Filtration Rate >60 (60-); Glucose, Blood 165 mg/dL (70-99); Potassium, Blood 4.3 mmol/L (3.5-5.5); Sodium, Blood 133 mmol/L (136-145); Total Protein, Blood 7.2 g/dL (6.4-8.2)
[2019-05-04 08:09] LABS: Source, Urine Clean Catch
[2019-05-04 08:26] LABS: Bilirubin, Urine Neg (Neg); Blood, Urine 1+ (Neg); Glucose Qualitative, Urine Neg (Neg); Ketones, Urine Neg (Neg); Leukocyte Esterase, Urine Neg (Neg); Nitrite, Urine Neg (Neg); Protein, Urine Neg (Neg); Urobilinogen, Urine NORM (Normal)
[2019-05-04 08:35] LABS: Appearance, Urine Clear (Clear); Color, Urine Yellow (P-Yellow)
[2019-05-04 08:42] LABS: Bacteria Few /hpf; Red Blood Cells, Urine 0-2 /hpf (0-2); Squamous Epithelial Cells Mod /hpf (Few); White Blood Cells, Urine Not Seen /hpf (0-5)
--- NOTE | 2019-05-04 19:13 | NUR ---
PT. SITTING IN BED DENIES PAIN OR NAUSEA. HEPARIN HAS BEEN STARTED AGAIN PER DR. FLEMING. UA COMPLETE, PT. USING BEDPAN. NO NOTEABLE CHANGES THIS SHIFT.
--- NOTE | 2019-05-05 00:34 | NUR ---
pt had a 9 beat run of v-tach as reported from radio television announcer. pt assessed and no s/sx's noted. pt resting comfortably and in no distress. wctm
[2019-05-05 05:25] LABS: BASOPHILS ABSOLUTE AUTO 0.02 K/mm3 (0.00-0.23); BASOPHILS PERCENT AUTO 0 % (0-2); EOSINOPHILS PERCENT AUTO 0 % (0-6); Hematocrit 37.6 % (33.0-51.0); Hemoglobin 11.6 g/dL (11.5-16.0); IMMATURE GRAN ABSOLUTE AUTO 0.09 K/mm3 (0.00-0.10); IMMATURE GRAN PERCENT AUTO 1 % (0-1); LYMPHOCYTES ABSOLUTE AUTO 0.45 K/mm3 (0.84-5.20); LYMPHOCYTES PERCENT AUTO 4 % (21-46); MONOCYTES ABSOLUTE AUTO 1.23 K/mm3 (0.16-1.47); MONOCYTES PERCENT AUTO 11 % (4-13); Mean Corpuscular HGB 28.1 pg (26.0-34.0); Mean Corpuscular HGB Conc 30.9 g/dL (31.5-36.5); Mean Corpuscular Volume 91 fL (80-100); Mean Platelet Volume 11.2 fL (9.1-12.4); NEUTROPHILS ABSOLUTE AUTO 9.21 K/mm3 (1.96-9.15); NEUTROPHILS PERCENT AUTO 84 % (41-73); Platelet Count 196 K/mm3 (150-400); RDW Coefficient Variation 13.2 % (11.7-14.2); RDW Standard Deviation 44.3 fL (35.1-46.3); Red Blood Cell Count 4.13 M/mm3 (3.80-5.20)
[2019-05-05 05:46] LABS: Anion Gap 4 mmol/L (6-16); Blood Urea Nitrogen 21 mg/dL (8-24); Bun/Creatinine Ratio 30.9 (12.0-20.0); CO2, Blood 27 mmol/L (21-32); Calcium, Blood 9.5 mg/dL (8.5-10.1); Chloride, Blood 106 mmol/L (98-108); Creatinine, Blood 0.68 mg/dL (0.40-1.00); Glomerular Filtration Rate >60 (60-); Glucose, Blood 128 mg/dL (70-99); Potassium, Blood 3.9 mmol/L (3.5-5.5); Sodium, Blood 137 mmol/L (136-145)
--- NOTE | 2019-05-05 06:42 | NUR ---
SUMMARY PT HAD NOTED 9 BEAT RUN OF V-TACH. NO ISSUES RELATED TO V-TACH. PT HAS SLEPT WELL AND HAD NO COMPLAINTS. PT CURRENTLY SLEEPING AND BREATHING EASY. CALL LIGHT IN REACH.
--- NOTE | 2019-05-05 18:04 | NUR ---
1335 PT IV BECAME OCCLUDED. PHARMACY CALLED REGARDING PAUSING HEPARIN. NEW LINE PLACED AT 1410 BY STEVEN LAWTON . NEW RATE STARTED , PHARMACY NOTIFIED AGAIN.
--- NOTE | 2019-05-05 18:04 | NUR ---
Initial spiritual care note: Ms. Curiel was alone in room, awake, and irritable. She told me she felt "like being argumentative" and initially disagreed or dismissed everything I said. 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 She states she has been struggling since November. She reports a yohannes in a God that is loving, but also believes she is being punished. We spoke at length about this and Carmen responded well to gentle yohannes exploration and spiritual direction. She says her niece is her POA, but there is nothing in chart about this. She has a brother in [place]. When asked about her prognosis, Carmen says she has been told she may get "a little better." She admits "this isn't good enough." She denies a fear of and is clear she is tired of suffering. We prayed together for a clear path. I asked palliative care RN to meet with Carmen to clarify her code status. Currently, she is a Full Code which seems to contradict what she actually wants. Face Worker Services will remain available.
--- NOTE | 2019-05-05 18:37 | NUR ---
PT TALKED WITH PALLATIVE CARE ABOUT CHANGING CODE STATUS. WILL FOLLOW UP WITH THEM Thursday05/06/19. NO ACUTE CHANGES TO PT.
--- NOTE | 2019-05-06 07:38 | NUR ---
05/06/19 0600 RN AND HUMAN RESOURCES TEAM MEMBER CHANGED BRIEF OF INCONTINENCE OF URINE. MARTHA-CARE GIVEN. VITALS STABLE. PT STATES SHE SLEPT ON AND OFF LAST NIGHT. TURNED Q 2 HOURS. UNEVENTFUL NIGHT.
--- NOTE | 2019-05-06 08:02 | NUR ---
CHECKED AND VERIFIED HEPARIN DRIP WITH OFFGOING NURSE JESSIE PERDOMO, GTT RUNNING AT 22 UNITS/KG/HR. NO S/SX OF BLEEDING NOTED AT THIS TIME. NEXT PTT TIMED FOR 1300
--- NOTE | 2019-05-06 10:12 | NUR ---
Echocardiogra completed.
--- NOTE | 2019-05-06 15:40 | NUR ---
HEADACHE WITH MOVEMENT. PT C/O SEVERE HEADACHE AFTER TRANSFERING. HEADACHE RESOLVES QUICKLY AFTER RESTING. ISTRATE NOTIFIED. STATED TO CONTINUE TO MONITOR. INSTRUCTED TO STOP IV HEPARIN AND START XARELTO. WILL CONTINUE TO MONITOR.
--- NOTE | 2019-05-06 17:25 | NUR ---
SHIFT SUMMARY PATIENT WITH CONTINUED PAIN IN HER RIGHT SHOULDER; DR. FLEMING ORDERED LIDOCAINE PATCH. PATIENT REPORTS MARKED IMPROVEMENT. PATIENT OUT OF THE BED TO THE CHAIR X2 TIMES TODAY. PATIENT REPORTS THAT SHE PREFERS TO EAT IN THE BED BECAUSE IT IS DIFFICULT FOR HER TO EAT SITTING UP DUE TO KYPHOSIS. SPOKE WITH WENDI QUINTANILLA AND UPDATED HER REGARDING PLAN OF CARE, DR. MARSHALL ALSO NOTIFIED HER OF UPDATES. HEPARIN GTT STOPPED, PATIENT PLACED ON THERAPEUTIC EQUAVALENT DOSE OF XARELTO. HEADACHES SHARP AND INTERMITTENT, OCCUR IN PASSING WITH SUDDEN CHANGE IN POSITION.
--- NOTE | 2019-05-06 18:47 | NUR ---
HEADACHE PATIENT WITH SPLITTING HEADACHE "LIKE A LIGHTNING BOLT" SHARP INTENSE PAIN WITH MOVEMENT FORM THE BED TO THE COMMODE. GOT A SET OF ORTHOSTATIC VITAL SIGNS AND CALLED DR. FLEMING. STAT ESR ORDERED, CONTINUE OFFERING TYLENOL (PATIENT REFUSING IT), AND CONTINUE PREDNISONE DAILY. HEADACHE INTERMITTENT, AND RESOLVED AFTER A FEW MINUTES.
--- NOTE | 2019-05-07 03:32 | NUR ---
SHIFT SUMMARY ASSUMED CARE OF PT AT 1900. PT IS A/O X4, DENIES N/T IN EXTREMITIES. HEART SOUNDS REGULAR, TELE MONITOR SHOWED PACED AT 60, PT DENIES CP AT THIS TIME. LUNG SOUNDS ON THE RIGHT ARE DIMINISHED WITH FINE CRACKLES AT THE BASES, PT WAS ON 1L O2 DURING THE DAY AND REQUESTED THAT SHE BE TAKEN OFF BECUASE SHE THINKS THAT IT IS MAKING HER MORE SICK, PT SATURATIONS HAVE BEEN ABOVE 90% ALL NIGHT, PT C/O SOME SOB. PT DENIES N/V AT THIS TIME, BOWEL TONES HYPERACTIVE. NO ACUTE EVENTS OVER NIGHT. PT STATES THAT SHE HAS NO NEW COMPLAINTS. PT SLEPT T/O THE NIGHT. CALL LIGHT IN REACH, BED IN LOWEST POSTION, WILL CONITNUE TO MONITOR UNTIL DAYSHIFT NURSE ARRIVES.
[2019-05-07 05:38] LABS: Hematocrit 37.2 % (33.0-51.0); Hemoglobin 11.7 g/dL (11.5-16.0); Mean Corpuscular HGB 28.7 pg (26.0-34.0); Mean Corpuscular HGB Conc 31.5 g/dL (31.5-36.5); Mean Corpuscular Volume 91 fL (80-100); Mean Platelet Volume 10.5 fL (9.1-12.4); Platelet Count 226 K/mm3 (150-400); RDW Coefficient Variation 13.4 % (11.7-14.2); RDW Standard Deviation 45.3 fL (35.1-46.3); Red Blood Cell Count 4.08 M/mm3 (3.80-5.20); White Blood Cell Count 7.56 K/mm3 (4.00-11.30)
[2019-05-07 05:50] LABS: Anion Gap 3 mmol/L (6-16); Blood Urea Nitrogen 25 mg/dL (8-24); Bun/Creatinine Ratio 40.9 (12.0-20.0); CO2, Blood 30 mmol/L (21-32); Calcium, Blood 9.7 mg/dL (8.5-10.1); Chloride, Blood 107 mmol/L (98-108); Creatinine, Blood 0.61 mg/dL (0.40-1.00); Glomerular Filtration Rate >60 (60-); Glucose, Blood 104 mg/dL (70-99); Magnesium, Blood 2.1 mg/dL (1.6-2.4); Potassium, Blood 4.2 mmol/L (3.5-5.5); Sodium, Blood 140 mmol/L (136-145)
--- NOTE | 2019-05-07 17:34 | NUR ---
PT IS A/OX3, PLEASANT AND COOPERATIVE, THE PT IS UP TO THE BSC WITH LITTLE ASSISTANCE, THE PT REPORTED FEELING A LITTLE SOB THIS AM AND O2 WAS REAPPLIED PER HER REQUEST FOR COMFORT, THE PT DENIED ANY PAIN SO FAR THIS SHIFT, THE PT WORKED WITH THE PHYSICAL THERAPIST TODAY AND TOLERATED IT WELL, CALL LIGHT IN REACH, WILL CONTINUE TO MONITOR AND ASSESS FOR CHANGES
[2019-05-08 06:23] LABS: BASOPHILS ABSOLUTE AUTO 0.02 K/mm3 (0.00-0.23); BASOPHILS PERCENT AUTO 0 % (0-2); EOSINOPHILS ABSOLUTE AUTO 0.01 K/mm3 (0.00-0.68); EOSINOPHILS PERCENT AUTO 0 % (0-6); Hematocrit 40.1 % (33.0-51.0); Hemoglobin 11.8 g/dL (11.5-16.0); IMMATURE GRAN ABSOLUTE AUTO 0.29 K/mm3 (0.00-0.10); IMMATURE GRAN PERCENT AUTO 4 % (0-1); LYMPHOCYTES ABSOLUTE AUTO 0.91 K/mm3 (0.84-5.20); LYMPHOCYTES PERCENT AUTO 13 % (21-46); MONOCYTES PERCENT AUTO 10 % (4-13); Mean Corpuscular HGB 27.1 pg (26.0-34.0); Mean Corpuscular HGB Conc 29.4 g/dL (31.5-36.5); Mean Corpuscular Volume 92 fL (80-100); Mean Platelet Volume 10.5 fL (9.1-12.4); NEUTROPHILS ABSOLUTE AUTO 5.33 K/mm3 (1.96-9.15); NEUTROPHILS PERCENT AUTO 74 % (41-73); Platelet Count 240 K/mm3 (150-400); RDW Coefficient Variation 13.6 % (11.7-14.2); RDW Standard Deviation 46.4 fL (35.1-46.3); Red Blood Cell Count 4.35 M/mm3 (3.80-5.20); White Blood Cell Count 7.26 K/mm3 (4.00-11.30)
[2019-05-08 06:44] LABS: BASOPHILS PERCENT MAN 0 % (0-2); EOSINOPHILS PERCENT MAN 0 % (0-6); LYMPHOCYTES ABSOLUTE MAN 0.94 K/mm3 (0.84-5.20); LYMPHOCYTES PERCENT MAN 13 % (21-46); METAMYELOCYTE ABSOLUTE MAN 0.07 K/mm3 (0.00-0.00); METAMYELOCYTE PERCENT MAN 1 % (0-0); MONOCYTES ABSOLUTE MAN 0.58 K/mm3 (0.16-1.47); MONOCYTES PERCENT MAN 8 % (4-13); NEUTROPHILS ABSOLUTE MAN 5.66 K/mm3 (1.96-9.15); SEG NEUTROPHILS PERCENT MAN 78 % (41-73); TOTAL CELLS COUNTED 100
--- NOTE | 2019-05-08 07:09 | NUR ---
SHIFT SUMMARY: PATIENT IS A&OX4, NO COMPLIANTS OF PAIN OR DISCOMFORT. UP TO BATHROOM WITH ASSIST OF ONE. VS ARE STABLE. PATIENT STATED SHE DOES NOT THINK THE [facility] IS WORKING WELL FOR HER. A FRIEND BROUGHT THE MEDICATION IN AND ORDER WAS OBTAINED FOR PATIENT TO USE HER HOME MED.
--- NOTE | 2019-05-08 15:08 | NUR ---
SUMMARY PT IS A/O X4, PLEASANT/COOPERATIVE AFFECT T/O DAY. SHE STATE "A LITTLE BIT" SHORT OF BREATH HOWEVER STATES BREATHING CONTINUES TO IMPROVE. LUNGS CLEAR, DECREASED T/O, BIOX 95% 2L. RT ASSISTING w O2 TITRATION/NEBS/RESP MEDS. SHE CONTINUES 100% PACED/TELE, RATE 60'S. PHOTO & WOUND CARE R ANKLE TODAY. SHE APPEARS WEAK/FATIGUED, UP 1 ASSIST TO BSC. SIGNIFICANT KYPHOSIS. HX RA, ESR ELEVATED 39. ISTRATE IN TO SEE HER STATE PERICARDIAL EFFUSION IMPROVED, PLAN FOR SNF. VSS.
--- NOTE | 2019-05-09 03:19 | NUR ---
SHIFT SUMMARY ASSUMED CARE OF PT AT 1900. PT IS A/O X4, DENIES N/T IN EXTREMITIES. HEART SOUNDS REGULAR, TELE MONITOR SHOWS PACED @ 60, DENIES CP AT THIS TIME. LUNG SOUNDS CLEAR, PT STATES THAT SHE HAS SOB SOB WHEN SHE TALKS TOO MUCH OR SHE EATS, PT CURRENTLY ON 2L O2, RT RECCOMENDED TO DAYSHIFT NURSE TO KEEP O2 ON EVEN THOUGH PT IS NORMALLY RA AT BASELINE FOR THE PATIENTS COMFORT, PT AGREED WITH STATEMENT. PT DID NOT GET TO SLEEP UNTIL AFTER MIDNIGHT, THEN PT SLEPT UNTIL IT WAS TIMES FOR MORNING MEDICATIONS. PT STATES THAT SHE IS GOING TO THERAPY AT [facility]. CALL LIGHT IN REACH, BED IN LOWEST POSITION, WILL CONTINUE TO MONITOR UNTIL DAYSHIFT NURSE ARRIVES.
[2019-05-09] MEDS ORDERED: LIDO700A20 TOP (13:02)
[2019-05-09] MEDS ORDERED: ACET325 PO (13:02)
[2019-05-09] MEDS ORDERED: GUAI600T33 PO (13:02)
[2019-05-09] MEDS ORDERED: BENADRYL25 MG PO (13:02)
[2019-05-09] MEDS ORDERED: BENGAY113 GM TOP (13:03)
[2019-05-09] MEDS ORDERED: ONDA4ODT MM (13:03)
[2019-05-09] MEDS ORDERED: TRAZ50 PO (13:04)
[2019-05-09] MEDS ORDERED: Florastor250 MG PO (13:04)
--- NOTE | 2019-05-09 15:03 | NUR ---
1400 POWEGLIDE REMOVED. 1420 HOME O2 EVAL COMPLETED PT DID NOT REQUIRE O2. 1432 PT DISCHARGED TO [facility] VIA W/C TRANSPORT. 1435 REPORT GIVEN TO LN AT [facility]. NO NEW CHANGES OR CONCERN.S
== END 2019-05-09 14:33 | DRG 871 ==
LOC: ER 08:17 → MEDS 08:18 → ENPENDDIS 05-09 12:59 → MEDS 05-09 14:33
PROVIDERS: Emergency Medicine; Family Medicine; Nurse Practitioner Acute Care; ADMIT Internal Medicine
DX: A41.9 Sepsis, unspecified organism (principal); J96.01 Acute respiratory failure with hypoxia; I31.3 Pericardial effusion (noninflammatory); I48.20 Chronic atrial fibrillation, unspecified; I50.32 Chronic diastolic (congestive) heart failure; M06.9 Rheumatoid arthritis, unspecified; K44.9 Diaphragmatic hernia without obstruction or gangrene; J45.909 Unspecified asthma, uncomplicated; Z79.52 Long term (current) use of systemic steroids; Z95.0 Presence of cardiac pacemaker; K21.9 Gastro-esophageal reflux disease without esophagitis; I11.0 Hypertensive heart disease with heart failure; G25.81 Restless legs syndrome; J45.40 Moderate persistent asthma, uncomplicated
CPT/HCPCS: 0099U; 36415; 36600; 71045; 71250; 80048; 80053; 81001; 82803; 83735; 83880; 84145; 84443; 84484; 85025; 85027; 85379; 85610; 85651; 85730; 93005; 93010; 93308; 93321; 94640; 94660; 94760; 94761; 96365-59; 97110; 97163; 97166; 97530; 99285-25; C1751; G0378; J0456; J1644; J7050; J7512; Q0163

== ENCOUNTER 2020-01-04 14:27 | Emergency (ER) | payer MEDICARE, OTHER ==
[~2020-01-04] VITALS: Ht 172.7 cm; Wt 77.6 kg
[~2020-01-04 14:27] MED LIST changes: +BENADRYL25 MG PO; +BENGAY113 GM TOP; +Florastor250 MG PO; +LIDO700A20 TOP; +Mupirocin22 GM TOP; +TRAZ50 PO
[2020-01-04] MEDS ORDERED: CALCIUM CIT 311 EACH PO (15:04)
[2020-01-04] MEDS ORDERED: INCRUSE ELLIPTA 62.5 (15:06)
[2020-01-04] MEDS ORDERED: PRED5 PO (15:07)
[2020-01-04] MEDS ORDERED: TIMO10T (15:07)
[2020-01-04] MEDS ORDERED: ROPINIROLE HC0.25 M1 PO (15:07)
[2020-01-04] MEDS ORDERED: METOPROLOL SUCC25 MG PO (15:08)
[2020-01-04] MEDS ORDERED: BREO ELLIPTA 11 EAC1 IH (15:08)
[2020-01-04] MEDS ORDERED: METHOTREXATE2.5 MG PO (15:08)
[2020-01-04] MEDS ORDERED: FOLI1 PO (15:08)
[2020-01-04 16:42] LABS: BASOPHILS ABSOLUTE AUTO 0.01 K/mm3 (0.00-0.23); BASOPHILS PERCENT AUTO 0 % (0-2); EOSINOPHILS ABSOLUTE AUTO 0.04 K/mm3 (0.00-0.68); EOSINOPHILS PERCENT AUTO 1 % (0-6); Hematocrit 44.9 % (33.0-51.0); Hemoglobin 14.2 g/dL (11.5-16.0); IMMATURE GRAN ABSOLUTE AUTO 0.02 K/mm3 (0.00-0.10); IMMATURE GRAN PERCENT AUTO 0 % (0-1); LYMPHOCYTES ABSOLUTE AUTO 0.75 K/mm3 (0.84-5.20); LYMPHOCYTES PERCENT AUTO 11 % (21-46); MONOCYTES ABSOLUTE AUTO 0.43 K/mm3 (0.16-1.47); MONOCYTES PERCENT AUTO 6 % (4-13); Mean Corpuscular HGB 31.3 pg (26.0-34.0); Mean Corpuscular HGB Conc 31.6 g/dL (31.5-36.5); Mean Corpuscular Volume 99 fL (80-100); Mean Platelet Volume 10.8 fL (9.1-12.4); NEUTROPHILS ABSOLUTE AUTO 5.65 K/mm3 (1.96-9.15); NEUTROPHILS PERCENT AUTO 82 % (41-73); Platelet Count 149 K/mm3 (150-400); RDW Coefficient Variation 14.3 % (11.7-14.2); Red Blood Cell Count 4.54 M/mm3 (3.80-5.20)
[2020-01-04 16:56] LABS: C-REACTIVE PROTEIN, EXT RANGE 0.964 mg/dL (0.000-0.300)
[2020-01-04 16:58] LABS: Alanine Aminotransfer (ALT/SGP 23 U/L (12-78); Albumin, Blood 3.5 g/dL (3.4-5.0); Alk Phos 76 U/L (50-136); Anion Gap 3 mmol/L (6-16); Aspartate Aminotrans (AST/SGOT 21 U/L (12-37); Bilirubin, Total 0.3 mg/dL (0.1-1.0); Blood Urea Nitrogen 29 mg/dL (8-24); Bun/Creatinine Ratio 31.6 (12.0-20.0); CO2, Blood 29 mmol/L (21-32); Calcium, Blood 9.3 mg/dL (8.5-10.1); Chloride, Blood 114 mmol/L (98-108); Creatinine, Blood 0.92 mg/dL (0.40-1.00); Globulin, Blood 3.4 g/dL (2.2-4.0); Glomerular Filtration Rate >60 (60-); Glucose, Blood 105 mg/dL (70-99); Potassium, Blood 4.6 mmol/L (3.5-5.5); Sodium, Blood 146 mmol/L (136-145); Total Protein, Blood 6.9 g/dL (6.4-8.2)
[2020-01-04] MEDS ORDERED: XARELTO15 MG PO (17:23)
== END 2020-01-04 18:30 | disposition home or self-care (01) ==
LOC: ER 14:27
PROVIDERS: Emergency Medicine
DX: I82.531 Chronic embolism and thrombosis of right popliteal vein (principal); K21.9 Gastro-esophageal reflux disease without esophagitis; I10 Essential (primary) hypertension; I48.91 Unspecified atrial fibrillation; Z88.2 Allergy status to sulfonamides; Z88.8 Allergy status to other drugs, medicaments and biological substances; Z79.899 Other long term (current) drug therapy; Z79.52 Long term (current) use of systemic steroids; Z79.01 Long term (current) use of anticoagulants; Z95.0 Presence of cardiac pacemaker
CPT/HCPCS: 73590; 80053; 85025; 85651; 86140; 93971; 99285-25

== ENCOUNTER 2020-01-09 01:21 | Day surgery (SDC) | payer MEDICARE, OTHER ==
[~2020-01-09 01:21] MED LIST changes: +BREO ELLIPTA 11 EAC1 IH; +CALCIUM CIT 311 EACH PO; +INCRUSE ELLIPTA 62.5; +METHOTREXATE2.5 MG PO; +METOPROLOL SUCC25 MG PO; +PRED5 PO; +ROPINIROLE HC0.25 M1 PO; +TIMO10T; +XARELTO15 MG PO
== END 2020-01-09 23:11 | disposition home or self-care (01) ==
LOC: WOUND 01:21
DX: L97.812 Non-pressure chronic ulcer of other part of right lower leg with fat layer exposed (principal); G47.33 Obstructive sleep apnea (adult) (pediatric); I73.9 Peripheral vascular disease, unspecified; I10 Essential (primary) hypertension; J45.909 Unspecified asthma, uncomplicated; Z79.899 Other long term (current) drug therapy; Z88.2 Allergy status to sulfonamides; Z88.8 Allergy status to other drugs, medicaments and biological substances; E03.9 Hypothyroidism, unspecified
CPT/HCPCS: G0463

== ENCOUNTER 2020-01-16 02:01 | Day surgery (SDC) | payer MEDICARE, OTHER | END 2020-01-16 23:19 | disposition home or self-care (01) | LOC: WOUND 02:01 | DX: I96 Gangrene, not elsewhere classified (principal); L97.812 Non-pressure chronic ulcer of other part of right lower leg with fat layer exposed; M19.90 Unspecified osteoarthritis, unspecified site; I48.91 Unspecified atrial fibrillation; I10 Essential (primary) hypertension; J45.909 Unspecified asthma, uncomplicated; G47.33 Obstructive sleep apnea (adult) (pediatric); M81.0 Age-related osteoporosis without current pathological fracture; G89.4 Chronic pain syndrome; G25.81 Restless legs syndrome; I11.0 Hypertensive heart disease with heart failure; I50.9 Heart failure, unspecified; D64.9 Anemia, unspecified; H40.9 Unspecified glaucoma; I49.9 Cardiac arrhythmia, unspecified; E07.9 Disorder of thyroid, unspecified; M06.9 Rheumatoid arthritis, unspecified; Z95.0 Presence of cardiac pacemaker; Z88.2 Allergy status to sulfonamides; Z88.8 Allergy status to other drugs, medicaments and biological substances; Z79.01 Long term (current) use of anticoagulants; Z79.51 Long term (current) use of inhaled steroids; Z79.52 Long term (current) use of systemic steroids; Z79.899 Other long term (current) drug therapy; Z51.5 Encounter for palliative care ==

== ENCOUNTER 2020-01-31 00:30 | Day surgery (SDC) | payer MEDICARE, OTHER | END 2020-01-31 22:39 | disposition home or self-care (01) | LOC: WOUND 00:30 | DX: I96 Gangrene, not elsewhere classified (principal); L97.812 Non-pressure chronic ulcer of other part of right lower leg with fat layer exposed; I11.0 Hypertensive heart disease with heart failure; I50.9 Heart failure, unspecified; E07.9 Disorder of thyroid, unspecified; M10.9 Gout, unspecified; I48.0 Paroxysmal atrial fibrillation; G47.33 Obstructive sleep apnea (adult) (pediatric); J45.909 Unspecified asthma, uncomplicated; M81.0 Age-related osteoporosis without current pathological fracture; G89.4 Chronic pain syndrome; G25.81 Restless legs syndrome; K21.9 Gastro-esophageal reflux disease without esophagitis; D64.9 Anemia, unspecified; I49.9 Cardiac arrhythmia, unspecified; Z79.01 Long term (current) use of anticoagulants; Z79.51 Long term (current) use of inhaled steroids; Z79.52 Long term (current) use of systemic steroids; Z79.899 Other long term (current) drug therapy; Z96.652 Presence of left artificial knee joint; Z88.2 Allergy status to sulfonamides; Z88.8 Allergy status to other drugs, medicaments and biological substances; Z86.718 Personal history of other venous thrombosis and embolism; Z95.0 Presence of cardiac pacemaker ==

== ENCOUNTER 2020-02-14 00:36 | Day surgery (SDC) | payer MEDICARE, OTHER | END 2020-02-14 23:00 | disposition home or self-care (01) | LOC: WOUND 00:36 | DX: I96 Gangrene, not elsewhere classified (principal); L97.812 Non-pressure chronic ulcer of other part of right lower leg with fat layer exposed; I48.0 Paroxysmal atrial fibrillation; I11.0 Hypertensive heart disease with heart failure; I50.9 Heart failure, unspecified; J45.909 Unspecified asthma, uncomplicated; G47.33 Obstructive sleep apnea (adult) (pediatric); M81.0 Age-related osteoporosis without current pathological fracture; G89.4 Chronic pain syndrome; G25.81 Restless legs syndrome; M19.90 Unspecified osteoarthritis, unspecified site; D64.9 Anemia, unspecified; E07.9 Disorder of thyroid, unspecified; M06.9 Rheumatoid arthritis, unspecified; Z95.0 Presence of cardiac pacemaker; Z96.652 Presence of left artificial knee joint; Z88.1 Allergy status to other antibiotic agents; Z88.2 Allergy status to sulfonamides; Z79.01 Long term (current) use of anticoagulants; Z79.899 Other long term (current) drug therapy ==

== ENCOUNTER 2020-02-21 00:30 | Day surgery (SDC) | payer MEDICARE, OTHER | END 2020-02-21 22:58 | disposition home or self-care (01) | LOC: WOUND 00:30 | DX: I96 Gangrene, not elsewhere classified (principal); L97.812 Non-pressure chronic ulcer of other part of right lower leg with fat layer exposed; I48.0 Paroxysmal atrial fibrillation; I11.0 Hypertensive heart disease with heart failure; I50.9 Heart failure, unspecified; E07.9 Disorder of thyroid, unspecified; G47.33 Obstructive sleep apnea (adult) (pediatric); H40.9 Unspecified glaucoma; D64.9 Anemia, unspecified; J45.909 Unspecified asthma, uncomplicated; M81.0 Age-related osteoporosis without current pathological fracture; G89.4 Chronic pain syndrome; G25.81 Restless legs syndrome; M06.9 Rheumatoid arthritis, unspecified; K21.9 Gastro-esophageal reflux disease without esophagitis; Z96.653 Presence of artificial knee joint, bilateral; Z88.2 Allergy status to sulfonamides; Z88.8 Allergy status to other drugs, medicaments and biological substances; Z79.01 Long term (current) use of anticoagulants; Z79.51 Long term (current) use of inhaled steroids; Z79.899 Other long term (current) drug therapy; Z79.52 Long term (current) use of systemic steroids; Z95.0 Presence of cardiac pacemaker ==

== ENCOUNTER 2020-02-28 00:37 | Day surgery (SDC) | payer MEDICARE, OTHER | END 2020-02-28 22:50 | disposition home or self-care (01) | LOC: WOUND 00:37 | DX: L97.812 Non-pressure chronic ulcer of other part of right lower leg with fat layer exposed (principal); G47.33 Obstructive sleep apnea (adult) (pediatric); I73.9 Peripheral vascular disease, unspecified; I10 Essential (primary) hypertension; M06.9 Rheumatoid arthritis, unspecified; I82.531 Chronic embolism and thrombosis of right popliteal vein; Z86.14 Personal history of Methicillin resistant Staphylococcus aureus infection ==

== ENCOUNTER 2020-03-05 08:19 | Day surgery (SDC) | payer MEDICARE, OTHER ==
[~2020-03-05] VITALS: Ht 160 cm; Wt 72.0 kg
[~2020-03-05 08:19] MED LIST changes: -BREO ELLIPTA 11 EACH INH; +LORA10ER PO; +XARELTO20 MG PO
--- NOTE | 2020-03-05 12:44 | NUR ---
PATIENT ARRIVED TO RECOVERY ROOM. ALERT AND RESPONDS APPROPRIATELY TO QUESTIONS. RIGHT GROIN SITE SOFT AND NONTENDER. DRESSING DRY AND INTACT
--- NOTE | 2020-03-05 13:19 | NUR ---
LEFT FEMORAL GROIN SITE SOFT NON-TENDER WITH NO HEMATOMA, NO PULSATILE BLEEDING AND INTACT DRESSING. LEFT DP PULSE 1+. CALL LIGHT IN REACH.
--- NOTE | 2020-03-05 14:57 | NUR ---
PT SITTING IN WC DRESSED, DAUGHTER CALLING FOR [facility] FOR RIDE TO ASSISTED CARE
--- NOTE | 2020-03-05 15:03 | NUR ---
DISCHARGE INSTRUCTIONS GONE OVER WITH PT, RONNY PRESENT. PT VERBALIZES UNDERSTANDING OF INSTRUCTIONS. PT TO TRANSPORTATION PER W/C WITH RONNY.
== END 2020-03-05 14:55 | disposition home or self-care (01) ==
LOC: MHTC 08:19
DX: I70.213 Atherosclerosis of native arteries of extremities with intermittent claudication, bilateral legs (principal); I10 Essential (primary) hypertension; J44.9 Chronic obstructive pulmonary disease, unspecified; Z79.01 Long term (current) use of anticoagulants; Z88.2 Allergy status to sulfonamides; Z79.899 Other long term (current) drug therapy; Z88.8 Allergy status to other drugs, medicaments and biological substances
CPT/HCPCS: 36245; 75625; 75716; 75774; 99152; 99153; C1760; C1769; C1887; C1894; J1644; J2250; J3010; J7030; J7050; Q9967

== ENCOUNTER 2020-03-09 02:11 | Day surgery (SDC) | payer MEDICARE, OTHER | END 2020-03-09 23:55 | disposition home or self-care (01) | LOC: WOUND 02:11 | DX: L97.812 Non-pressure chronic ulcer of other part of right lower leg with fat layer exposed (principal); I73.9 Peripheral vascular disease, unspecified; G47.33 Obstructive sleep apnea (adult) (pediatric); I10 Essential (primary) hypertension; K21.9 Gastro-esophageal reflux disease without esophagitis; I48.0 Paroxysmal atrial fibrillation; I44.2 Atrioventricular block, complete; G89.4 Chronic pain syndrome; J45.909 Unspecified asthma, uncomplicated; H40.9 Unspecified glaucoma; G25.81 Restless legs syndrome; Z88.2 Allergy status to sulfonamides; Z88.8 Allergy status to other drugs, medicaments and biological substances; Z79.01 Long term (current) use of anticoagulants; Z79.899 Other long term (current) drug therapy | CPT/HCPCS: A9270 ==

== ENCOUNTER 2020-03-16 00:28 | Day surgery (SDC) | payer MEDICARE, OTHER | END 2020-03-16 22:46 | disposition home or self-care (01) | LOC: WOUND 00:28 | DX: L97.812 Non-pressure chronic ulcer of other part of right lower leg with fat layer exposed (principal); I73.9 Peripheral vascular disease, unspecified; I10 Essential (primary) hypertension; J45.909 Unspecified asthma, uncomplicated; G47.33 Obstructive sleep apnea (adult) (pediatric); M06.9 Rheumatoid arthritis, unspecified; K21.9 Gastro-esophageal reflux disease without esophagitis; I48.0 Paroxysmal atrial fibrillation; I44.2 Atrioventricular block, complete; Z95.0 Presence of cardiac pacemaker; G89.4 Chronic pain syndrome; G25.81 Restless legs syndrome | CPT/HCPCS: A9270 ==

== ENCOUNTER 2020-03-23 00:34 | Day surgery (SDC) | payer MEDICARE, OTHER | END 2020-03-23 22:57 | disposition home or self-care (01) | LOC: WOUND 00:34 | DX: L97.812 Non-pressure chronic ulcer of other part of right lower leg with fat layer exposed (principal); L89.892 Pressure ulcer of other site, stage 2; I73.9 Peripheral vascular disease, unspecified; I82.531 Chronic embolism and thrombosis of right popliteal vein; I10 Essential (primary) hypertension; J45.909 Unspecified asthma, uncomplicated; I48.0 Paroxysmal atrial fibrillation; M06.9 Rheumatoid arthritis, unspecified; K21.9 Gastro-esophageal reflux disease without esophagitis; H40.9 Unspecified glaucoma; G25.81 Restless legs syndrome; G47.33 Obstructive sleep apnea (adult) (pediatric); Z95.0 Presence of cardiac pacemaker; Z86.14 Personal history of Methicillin resistant Staphylococcus aureus infection; Z96.653 Presence of artificial knee joint, bilateral; Z79.01 Long term (current) use of anticoagulants | CPT/HCPCS: A9270 ==

== ENCOUNTER 2020-03-30 02:05 | Day surgery (SDC) | payer MEDICARE, OTHER | END 2020-03-30 23:45 | disposition home or self-care (01) | LOC: WOUND 02:05 | DX: L97.812 Non-pressure chronic ulcer of other part of right lower leg with fat layer exposed (principal); L89.892 Pressure ulcer of other site, stage 2; I73.9 Peripheral vascular disease, unspecified; I82.531 Chronic embolism and thrombosis of right popliteal vein; I10 Essential (primary) hypertension; J45.909 Unspecified asthma, uncomplicated; G47.33 Obstructive sleep apnea (adult) (pediatric); M06.9 Rheumatoid arthritis, unspecified; K21.9 Gastro-esophageal reflux disease without esophagitis; I48.0 Paroxysmal atrial fibrillation; Z79.01 Long term (current) use of anticoagulants; Z95.0 Presence of cardiac pacemaker; Z96.653 Presence of artificial knee joint, bilateral | CPT/HCPCS: 87070; 87075; 87077; 87147; 87186; 87205; A9270 ==

== ENCOUNTER 2020-04-06 02:19 | Day surgery (SDC) | payer MEDICARE, OTHER | END 2020-04-06 22:44 | disposition home or self-care (01) | LOC: WOUND 02:19 | DX: L97.812 Non-pressure chronic ulcer of other part of right lower leg with fat layer exposed (principal); L89.892 Pressure ulcer of other site, stage 2; I73.9 Peripheral vascular disease, unspecified; I82.531 Chronic embolism and thrombosis of right popliteal vein; I10 Essential (primary) hypertension; J45.909 Unspecified asthma, uncomplicated; G47.33 Obstructive sleep apnea (adult) (pediatric); M06.9 Rheumatoid arthritis, unspecified; K21.9 Gastro-esophageal reflux disease without esophagitis; M81.0 Age-related osteoporosis without current pathological fracture; H40.9 Unspecified glaucoma; I48.0 Paroxysmal atrial fibrillation; G25.81 Restless legs syndrome; Z86.14 Personal history of Methicillin resistant Staphylococcus aureus infection; Z95.0 Presence of cardiac pacemaker; Z96.653 Presence of artificial knee joint, bilateral; Z79.01 Long term (current) use of anticoagulants | CPT/HCPCS: A9270 ==

== ENCOUNTER 2020-04-13 00:46 | Day surgery (SDC) | payer MEDICARE, OTHER | END 2020-04-13 23:50 | disposition home or self-care (01) | LOC: WOUND 00:46 | DX: L97.812 Non-pressure chronic ulcer of other part of right lower leg with fat layer exposed (principal); L89.892 Pressure ulcer of other site, stage 2; I73.9 Peripheral vascular disease, unspecified; I82.531 Chronic embolism and thrombosis of right popliteal vein; I10 Essential (primary) hypertension; J45.909 Unspecified asthma, uncomplicated; G47.33 Obstructive sleep apnea (adult) (pediatric); M06.9 Rheumatoid arthritis, unspecified; K21.9 Gastro-esophageal reflux disease without esophagitis; I48.0 Paroxysmal atrial fibrillation; G25.81 Restless legs syndrome; H40.9 Unspecified glaucoma; Z95.0 Presence of cardiac pacemaker; Z86.14 Personal history of Methicillin resistant Staphylococcus aureus infection; Z96.653 Presence of artificial knee joint, bilateral | CPT/HCPCS: A9270 ==

== ENCOUNTER 2020-04-20 01:14 | Day surgery (SDC) | payer MEDICARE, OTHER | END 2020-04-20 22:44 | disposition home or self-care (01) | LOC: WOUND 01:14 | DX: L97.812 Non-pressure chronic ulcer of other part of right lower leg with fat layer exposed (principal); L97.522 Non-pressure chronic ulcer of other part of left foot with fat layer exposed; I73.9 Peripheral vascular disease, unspecified; I82.531 Chronic embolism and thrombosis of right popliteal vein; I10 Essential (primary) hypertension; J45.909 Unspecified asthma, uncomplicated; G47.33 Obstructive sleep apnea (adult) (pediatric); M06.9 Rheumatoid arthritis, unspecified; K21.9 Gastro-esophageal reflux disease without esophagitis; H40.9 Unspecified glaucoma; I48.0 Paroxysmal atrial fibrillation; G25.81 Restless legs syndrome; Z95.0 Presence of cardiac pacemaker; Z86.14 Personal history of Methicillin resistant Staphylococcus aureus infection; Z96.653 Presence of artificial knee joint, bilateral | CPT/HCPCS: A9270 ==

== ENCOUNTER 2020-04-27 00:56 | Day surgery (SDC) | payer MEDICARE, OTHER | END 2020-04-27 22:47 | disposition home or self-care (01) | LOC: WOUND 00:56 | DX: L89.892 Pressure ulcer of other site, stage 2 (principal); L97.812 Non-pressure chronic ulcer of other part of right lower leg with fat layer exposed; I73.9 Peripheral vascular disease, unspecified; I10 Essential (primary) hypertension; G47.33 Obstructive sleep apnea (adult) (pediatric); M06.9 Rheumatoid arthritis, unspecified; I48.0 Paroxysmal atrial fibrillation; I44.2 Atrioventricular block, complete; K21.9 Gastro-esophageal reflux disease without esophagitis; G25.81 Restless legs syndrome; J45.909 Unspecified asthma, uncomplicated; Z79.52 Long term (current) use of systemic steroids; Z95.0 Presence of cardiac pacemaker; Z87.440 Personal history of urinary (tract) infections; Z86.14 Personal history of Methicillin resistant Staphylococcus aureus infection | CPT/HCPCS: A9270 ==

== ENCOUNTER → 2020-05-02 | Outpatient (CLI) | payer MEDICARE, OTHER ==
[~2020-05-02] MED LIST changes: +ACET500 PO; +ALLEGRA ALLERG180 MG PO; +ARTIFICIAL TEAR15 M2 BOTHEYES; +CALCIUM CIT 311 EAC7 PO; +Calcium Carbon500 MG PO; +DICLOFENAC SOD100 G1 TOP; +DOCU100 PO; +DULCOLAX400 MG/5 M PO; +IPRAT-ALBUT 0.5-3 ML INH; +NASACORT10.8 ML; +Nasal Spray30 M1; +XALATAN2.5 ML BOTHEYES
== END | disposition home or self-care (01) ==
LOC: LAB SHORT 10:34 → LAB UCHC 10:34
DX: L97.522 Non-pressure chronic ulcer of other part of left foot with fat layer exposed (principal)
CPT/HCPCS: 85651; 86140

== ENCOUNTER 2020-05-04 00:51 | Day surgery (SDC) | payer MEDICARE, OTHER ==
[~2020-05-04 00:51] MED LIST changes: -ACET500 PO; -ALLEGRA ALLERG180 MG PO; -ARTIFICIAL TEAR15 M2 BOTHEYES; -CALCIUM CIT 311 EAC7 PO; -Calcium Carbon500 MG PO; -DICLOFENAC SOD100 G1 TOP; -DOCU100 PO; -DULCOLAX400 MG/5 M PO; -IPRAT-ALBUT 0.5-3 ML INH; -NASACORT10.8 ML; -Nasal Spray30 M1; -XALATAN2.5 ML BOTHEYES
== END 2020-05-04 23:08 | disposition home or self-care (01) ==
LOC: WOUND 00:51
DX: L89.892 Pressure ulcer of other site, stage 2 (principal); L97.815 Non-pressure chronic ulcer of other part of right lower leg with muscle involvement without evidence of necrosis; I73.9 Peripheral vascular disease, unspecified; I10 Essential (primary) hypertension; J45.909 Unspecified asthma, uncomplicated; G47.33 Obstructive sleep apnea (adult) (pediatric); M06.9 Rheumatoid arthritis, unspecified; K21.9 Gastro-esophageal reflux disease without esophagitis; M81.0 Age-related osteoporosis without current pathological fracture; I48.0 Paroxysmal atrial fibrillation; G25.81 Restless legs syndrome; Z79.01 Long term (current) use of anticoagulants; Z95.0 Presence of cardiac pacemaker; Z96.653 Presence of artificial knee joint, bilateral; Z79.52 Long term (current) use of systemic steroids; Z86.718 Personal history of other venous thrombosis and embolism; Z86.14 Personal history of Methicillin resistant Staphylococcus aureus infection; Z87.81 Personal history of (healed) traumatic fracture
CPT/HCPCS: A9270; Q4196

== ENCOUNTER 2020-05-11 00:33 | Day surgery (SDC) | payer MEDICARE, OTHER | END 2020-05-11 22:43 | disposition home or self-care (01) | LOC: WOUND 00:33 | DX: L97.815 Non-pressure chronic ulcer of other part of right lower leg with muscle involvement without evidence of necrosis (principal); I73.9 Peripheral vascular disease, unspecified; L89.892 Pressure ulcer of other site, stage 2; I10 Essential (primary) hypertension; J45.909 Unspecified asthma, uncomplicated; G47.33 Obstructive sleep apnea (adult) (pediatric); M06.9 Rheumatoid arthritis, unspecified; K21.9 Gastro-esophageal reflux disease without esophagitis; M81.0 Age-related osteoporosis without current pathological fracture; H40.9 Unspecified glaucoma; I48.0 Paroxysmal atrial fibrillation; G25.81 Restless legs syndrome; Z79.01 Long term (current) use of anticoagulants; Z95.0 Presence of cardiac pacemaker; Z96.653 Presence of artificial knee joint, bilateral; Z79.52 Long term (current) use of systemic steroids; Z86.718 Personal history of other venous thrombosis and embolism; Z86.14 Personal history of Methicillin resistant Staphylococcus aureus infection; Z87.81 Personal history of (healed) traumatic fracture | CPT/HCPCS: A9270; Q4196 ==

== ENCOUNTER 2020-05-14 18:52 | Emergency (ER) | payer MEDICARE, OTHER ==
[~2020-05-14] VITALS: Ht 180.3 cm; Wt 79.4 kg
[2020-05-14 19:23] LABS: BASOPHILS ABSOLUTE AUTO 0.02 K/mm3 (0.00-0.23); BASOPHILS PERCENT AUTO 0 % (0-2); EOSINOPHILS ABSOLUTE AUTO 0.03 K/mm3 (0.00-0.68); EOSINOPHILS PERCENT AUTO 0 % (0-6); Hematocrit 42.6 % (33.0-51.0); Hemoglobin 13.5 g/dL (11.5-16.0); IMMATURE GRAN ABSOLUTE AUTO 0.02 K/mm3 (0.00-0.10); IMMATURE GRAN PERCENT AUTO 0 % (0-1); LYMPHOCYTES ABSOLUTE AUTO 0.75 K/mm3 (0.84-5.20); LYMPHOCYTES PERCENT AUTO 9 % (21-46); MONOCYTES ABSOLUTE AUTO 0.41 K/mm3 (0.16-1.47); MONOCYTES PERCENT AUTO 5 % (4-13); Mean Corpuscular HGB 31.3 pg (26.0-34.0); Mean Corpuscular HGB Conc 31.7 g/dL (31.5-36.5); Mean Corpuscular Volume 99 fL (80-100); Mean Platelet Volume 10.9 fL (9.1-12.4); NEUTROPHILS ABSOLUTE AUTO 7.49 K/mm3 (1.96-9.15); NEUTROPHILS PERCENT AUTO 86 % (41-73); Platelet Count 148 K/mm3 (150-400); RDW Coefficient Variation 13.4 % (11.7-14.2); RDW Standard Deviation 48.5 fL (35.1-46.3); Red Blood Cell Count 4.31 M/mm3 (3.80-5.20); White Blood Cell Count 8.72 K/mm3 (4.00-11.30)
[2020-05-14] MEDS ORDERED: CALCIUM CIT 311 EAC7 PO (19:33)
[2020-05-14] MEDS ORDERED: XALATAN2.5 ML BOTHEYES (19:34)
[2020-05-14] MEDS ORDERED: ALLEGRA ALLERG180 MG PO (19:34)
[2020-05-14] MEDS ORDERED: DICLOFENAC SOD100 G1 TOP (19:36)
[2020-05-14] MEDS ORDERED: ARTIFICIAL TEAR15 M2 BOTHEYES (19:37)
[2020-05-14] MEDS ORDERED: NASACORT10.8 ML (19:38)
[2020-05-14] MEDS ORDERED: Nasal Spray30 M1 (19:39)
[2020-05-14] MEDS ORDERED: IPRAT-ALBUT 0.5-3 ML INH (19:41)
[2020-05-14] MEDS ORDERED: DOCU100 PO (19:41)
[2020-05-14] MEDS ORDERED: ACET500 PO (19:42)
[2020-05-14] MEDS ORDERED: Calcium Carbon500 MG PO (19:42)
[2020-05-14] MEDS ORDERED: DULCOLAX400 MG/5 M PO (19:43)
[2020-05-14 19:48] LABS: Alanine Aminotransfer (ALT/SGP 54 U/L (12-78); Albumin, Blood 3.5 g/dL (3.4-5.0); Alk Phos 67 U/L (50-136); Anion Gap 6 mmol/L (6-16); Aspartate Aminotrans (AST/SGOT 44 U/L (12-37); Bilirubin, Total 1.3 mg/dL (0.1-1.0); Blood Urea Nitrogen 21 mg/dL (8-24); Bun/Creatinine Ratio 26.6 (12.0-20.0); CO2, Blood 25 mmol/L (21-32); Calcium, Blood 9.5 mg/dL (8.5-10.1); Chloride, Blood 109 mmol/L (98-108); Creatinine, Blood 0.79 mg/dL (0.40-1.00); Globulin, Blood 3.5 g/dL (2.2-4.0); Glomerular Filtration Rate >60 (60-); Glucose, Blood 109 mg/dL (70-99); Potassium, Blood 4.2 mmol/L (3.5-5.5); Sodium, Blood 140 mmol/L (136-145)
== END 2020-05-14 20:15 | disposition home or self-care (01) ==
LOC: ER 18:52
PROVIDERS: Emergency Medicine
DX: K91.840 Postprocedural hemorrhage of a digestive system organ or structure following a digestive system procedure (principal); I48.91 Unspecified atrial fibrillation; K21.9 Gastro-esophageal reflux disease without esophagitis; I11.0 Hypertensive heart disease with heart failure; I50.32 Chronic diastolic (congestive) heart failure; Z88.2 Allergy status to sulfonamides; Z88.8 Allergy status to other drugs, medicaments and biological substances; Z79.899 Other long term (current) drug therapy; Y84.8 Other medical procedures as the cause of abnormal reaction of the patient, or of later complication, without mention of misadventure at the time of the procedure
CPT/HCPCS: 36415; 80053; 85025; 99283

== ENCOUNTER 2020-05-18 02:04 | Day surgery (SDC) | payer MEDICARE, OTHER ==
[~2020-05-18 02:04] MED LIST changes: +ACET500 PO; +ALLEGRA ALLERG180 MG PO; +ARTIFICIAL TEAR15 M2 BOTHEYES; +CALCIUM CIT 311 EAC7 PO; +Calcium Carbon500 MG PO; +DICLOFENAC SOD100 G1 TOP; +DOCU100 PO; +DULCOLAX400 MG/5 M PO; +IPRAT-ALBUT 0.5-3 ML INH; +NASACORT10.8 ML; +Nasal Spray30 M1; +XALATAN2.5 ML BOTHEYES
== END 2020-05-18 22:45 | disposition home or self-care (01) ==
LOC: WOUND 02:04
DX: L97.812 Non-pressure chronic ulcer of other part of right lower leg with fat layer exposed (principal); L97.522 Non-pressure chronic ulcer of other part of left foot with fat layer exposed; I73.9 Peripheral vascular disease, unspecified
CPT/HCPCS: A9270; Q4196

== ENCOUNTER → 2020-05-23 | Outpatient (CLI) | payer MEDICARE, OTHER ==
[2020-05-23 17:34] LABS: Bilirubin, Urine Neg (Neg); Blood, Urine 3+ (Neg); Glucose Qualitative, Urine Neg (Neg); Ketones, Urine Neg (Neg); Leukocyte Esterase, Urine 3+ (Neg); Nitrite, Urine Pos (Neg); Protein, Urine 3+ (Neg); Specific Gravity, Urine 1.015 (1.003-1.022); Urobilinogen, Urine NORM (Normal)
[2020-05-23 18:08] LABS: Appearance, Urine Turbid (Clear); Color, Urine Yellow (P-Yellow)
[2020-05-23 18:12] LABS: White Blood Cells, Urine TNTC /hpf (0-5)
[2020-05-23 18:13] LABS: Bacteria Many /hpf; Red Blood Cells, Urine TNTC /hpf (0-2); Squamous Epithelial Cells Few /hpf (Few)
== END | disposition home or self-care (01) ==
LOC: LAB SHORT 15:12 → PLD 15:12
PROVIDERS: Family Medicine
DX: N39.498 Other specified urinary incontinence (principal); R39.15 Urgency of urination
CPT/HCPCS: 81001; 87077; 87086; 87186

== ENCOUNTER 2020-05-25 00:28 | Day surgery (SDC) | payer MEDICARE, OTHER | END 2020-05-25 22:51 | disposition home or self-care (01) | LOC: WOUND 00:28 | DX: L97.812 Non-pressure chronic ulcer of other part of right lower leg with fat layer exposed (principal); L97.522 Non-pressure chronic ulcer of other part of left foot with fat layer exposed; L97.519 Non-pressure chronic ulcer of other part of right foot with unspecified severity; I73.9 Peripheral vascular disease, unspecified; M79.675 Pain in left toe(s); I10 Essential (primary) hypertension; J45.909 Unspecified asthma, uncomplicated; G47.33 Obstructive sleep apnea (adult) (pediatric); M06.9 Rheumatoid arthritis, unspecified; I48.91 Unspecified atrial fibrillation | CPT/HCPCS: A9270 ==

== ENCOUNTER 2020-06-01 00:32 | Day surgery (SDC) | payer MEDICARE, OTHER | END 2020-06-01 22:59 | disposition home or self-care (01) | LOC: WOUND 00:32 | DX: L97.812 Non-pressure chronic ulcer of other part of right lower leg with fat layer exposed (principal); L97.522 Non-pressure chronic ulcer of other part of left foot with fat layer exposed; L97.519 Non-pressure chronic ulcer of other part of right foot with unspecified severity; I73.9 Peripheral vascular disease, unspecified; M79.675 Pain in left toe(s); I10 Essential (primary) hypertension; J45.909 Unspecified asthma, uncomplicated; G47.33 Obstructive sleep apnea (adult) (pediatric); M06.9 Rheumatoid arthritis, unspecified; K21.9 Gastro-esophageal reflux disease without esophagitis; I48.91 Unspecified atrial fibrillation; Z96.653 Presence of artificial knee joint, bilateral | CPT/HCPCS: A9270 ==

== ENCOUNTER 2020-06-06 00:28 | Day surgery (SDC) | payer MEDICARE, OTHER | END 2020-06-06 22:55 | disposition home or self-care (01) | LOC: WOUND 00:28 | DX: L97.815 Non-pressure chronic ulcer of other part of right lower leg with muscle involvement without evidence of necrosis (principal); L97.522 Non-pressure chronic ulcer of other part of left foot with fat layer exposed; L97.519 Non-pressure chronic ulcer of other part of right foot with unspecified severity; I73.9 Peripheral vascular disease, unspecified; I82.531 Chronic embolism and thrombosis of right popliteal vein; I10 Essential (primary) hypertension; J45.909 Unspecified asthma, uncomplicated; G47.33 Obstructive sleep apnea (adult) (pediatric); M06.9 Rheumatoid arthritis, unspecified; K21.9 Gastro-esophageal reflux disease without esophagitis; M81.0 Age-related osteoporosis without current pathological fracture; H40.9 Unspecified glaucoma; I48.0 Paroxysmal atrial fibrillation; G25.81 Restless legs syndrome; Z95.0 Presence of cardiac pacemaker; Z86.14 Personal history of Methicillin resistant Staphylococcus aureus infection; Z96.653 Presence of artificial knee joint, bilateral | CPT/HCPCS: A9270; G0463 ==

== ENCOUNTER 2020-06-15 00:44 | Day surgery (SDC) | payer MEDICARE, OTHER | END 2020-06-15 23:27 | disposition home or self-care (01) | LOC: WOUND 00:44 | DX: L97.812 Non-pressure chronic ulcer of other part of right lower leg with fat layer exposed (principal); L97.522 Non-pressure chronic ulcer of other part of left foot with fat layer exposed; L97.519 Non-pressure chronic ulcer of other part of right foot with unspecified severity; I73.9 Peripheral vascular disease, unspecified; M79.675 Pain in left toe(s); I10 Essential (primary) hypertension; J45.909 Unspecified asthma, uncomplicated; G47.33 Obstructive sleep apnea (adult) (pediatric); M06.9 Rheumatoid arthritis, unspecified; K21.9 Gastro-esophageal reflux disease without esophagitis; I48.0 Paroxysmal atrial fibrillation; G89.4 Chronic pain syndrome; G25.81 Restless legs syndrome | CPT/HCPCS: A9270 ==

== ENCOUNTER 2020-06-29 02:06 | Day surgery (SDC) | payer MEDICARE, OTHER | END 2020-06-29 23:11 | disposition home or self-care (01) | LOC: WOUND 02:06 | DX: L97.812 Non-pressure chronic ulcer of other part of right lower leg with fat layer exposed (principal); L97.519 Non-pressure chronic ulcer of other part of right foot with unspecified severity; L97.522 Non-pressure chronic ulcer of other part of left foot with fat layer exposed; I73.9 Peripheral vascular disease, unspecified; M79.675 Pain in left toe(s); I10 Essential (primary) hypertension; J45.909 Unspecified asthma, uncomplicated; M06.9 Rheumatoid arthritis, unspecified; K21.9 Gastro-esophageal reflux disease without esophagitis; I48.91 Unspecified atrial fibrillation; Z95.0 Presence of cardiac pacemaker; G89.4 Chronic pain syndrome; G25.81 Restless legs syndrome | CPT/HCPCS: A9270 ==

== ENCOUNTER 2020-07-06 00:45 | Day surgery (SDC) | payer MEDICARE, OTHER | END 2020-07-06 23:07 | disposition home or self-care (01) | LOC: WOUND 00:45 | DX: L97.812 Non-pressure chronic ulcer of other part of right lower leg with fat layer exposed (principal); L89.892 Pressure ulcer of other site, stage 2; L97.522 Non-pressure chronic ulcer of other part of left foot with fat layer exposed; L97.519 Non-pressure chronic ulcer of other part of right foot with unspecified severity; I73.9 Peripheral vascular disease, unspecified; M79.675 Pain in left toe(s); I10 Essential (primary) hypertension; G47.33 Obstructive sleep apnea (adult) (pediatric); J45.909 Unspecified asthma, uncomplicated; K21.9 Gastro-esophageal reflux disease without esophagitis; I48.0 Paroxysmal atrial fibrillation; Z79.01 Long term (current) use of anticoagulants; Z95.0 Presence of cardiac pacemaker; G25.81 Restless legs syndrome; G89.4 Chronic pain syndrome | CPT/HCPCS: A9270; G0463 ==

== ENCOUNTER 2020-07-13 00:35 | Day surgery (SDC) | payer MEDICARE, OTHER | END 2020-07-13 22:48 | disposition home or self-care (01) | LOC: WOUND 00:35 | DX: L97.812 Non-pressure chronic ulcer of other part of right lower leg with fat layer exposed (principal); L97.522 Non-pressure chronic ulcer of other part of left foot with fat layer exposed; L97.519 Non-pressure chronic ulcer of other part of right foot with unspecified severity; I73.9 Peripheral vascular disease, unspecified; M79.675 Pain in left toe(s); I10 Essential (primary) hypertension; J45.909 Unspecified asthma, uncomplicated; G47.33 Obstructive sleep apnea (adult) (pediatric); M06.9 Rheumatoid arthritis, unspecified; K21.9 Gastro-esophageal reflux disease without esophagitis; I48.91 Unspecified atrial fibrillation; Z95.0 Presence of cardiac pacemaker; G89.4 Chronic pain syndrome; G25.81 Restless legs syndrome; L89.892 Pressure ulcer of other site, stage 2 | CPT/HCPCS: A9270 ==

== ENCOUNTER 2020-07-20 00:55 | Day surgery (SDC) | payer MEDICARE, OTHER | END 2020-07-20 23:11 | disposition home or self-care (01) | LOC: WOUND 00:55 | DX: L97.812 Non-pressure chronic ulcer of other part of right lower leg with fat layer exposed (principal); L97.522 Non-pressure chronic ulcer of other part of left foot with fat layer exposed; L97.519 Non-pressure chronic ulcer of other part of right foot with unspecified severity; I73.9 Peripheral vascular disease, unspecified; M79.675 Pain in left toe(s); I10 Essential (primary) hypertension; G47.33 Obstructive sleep apnea (adult) (pediatric); J45.909 Unspecified asthma, uncomplicated; M06.9 Rheumatoid arthritis, unspecified; K21.9 Gastro-esophageal reflux disease without esophagitis; I48.91 Unspecified atrial fibrillation; Z95.0 Presence of cardiac pacemaker; G25.81 Restless legs syndrome | CPT/HCPCS: A9270; Q4196 ==

== ENCOUNTER 2020-07-27 04:21 | Day surgery (SDC) | payer MEDICARE, OTHER | END 2020-07-27 23:21 | disposition home or self-care (01) | LOC: WOUND 04:21 | DX: L97.812 Non-pressure chronic ulcer of other part of right lower leg with fat layer exposed (principal); L97.522 Non-pressure chronic ulcer of other part of left foot with fat layer exposed; L97.519 Non-pressure chronic ulcer of other part of right foot with unspecified severity; I73.9 Peripheral vascular disease, unspecified; M79.675 Pain in left toe(s); I10 Essential (primary) hypertension; G47.33 Obstructive sleep apnea (adult) (pediatric); K21.9 Gastro-esophageal reflux disease without esophagitis; I48.91 Unspecified atrial fibrillation; Z95.0 Presence of cardiac pacemaker; I44.2 Atrioventricular block, complete; G89.4 Chronic pain syndrome | CPT/HCPCS: A9270; Q4196 ==

== ENCOUNTER 2020-08-03 04:20 | Day surgery (SDC) | payer MEDICARE, OTHER | END 2020-08-04 00:36 | disposition home or self-care (01) | LOC: WOUND 04:20 | DX: L97.812 Non-pressure chronic ulcer of other part of right lower leg with fat layer exposed (principal); L97.522 Non-pressure chronic ulcer of other part of left foot with fat layer exposed; L97.519 Non-pressure chronic ulcer of other part of right foot with unspecified severity; I73.9 Peripheral vascular disease, unspecified; M79.675 Pain in left toe(s); I10 Essential (primary) hypertension; J45.909 Unspecified asthma, uncomplicated; M06.9 Rheumatoid arthritis, unspecified; K21.9 Gastro-esophageal reflux disease without esophagitis; I48.91 Unspecified atrial fibrillation; I44.2 Atrioventricular block, complete; Z95.0 Presence of cardiac pacemaker | CPT/HCPCS: A9270; Q4196 ==

== ENCOUNTER 2020-08-10 04:42 | Day surgery (SDC) | payer MEDICARE, OTHER | END 2020-08-10 23:54 | disposition home or self-care (01) | LOC: WOUND 04:42 | DX: L97.812 Non-pressure chronic ulcer of other part of right lower leg with fat layer exposed (principal); L97.522 Non-pressure chronic ulcer of other part of left foot with fat layer exposed; L97.519 Non-pressure chronic ulcer of other part of right foot with unspecified severity; I73.9 Peripheral vascular disease, unspecified; M79.675 Pain in left toe(s); I10 Essential (primary) hypertension; J44.9 Chronic obstructive pulmonary disease, unspecified; K21.9 Gastro-esophageal reflux disease without esophagitis; I48.91 Unspecified atrial fibrillation; G25.81 Restless legs syndrome; I44.2 Atrioventricular block, complete; Z95.0 Presence of cardiac pacemaker | CPT/HCPCS: A9270 ==

== ENCOUNTER 2020-08-17 01:50 | Day surgery (SDC) | payer MEDICARE, OTHER | END 2020-08-17 12:00 | disposition home or self-care (01) | LOC: WOUND 01:50 | DX: L97.815 Non-pressure chronic ulcer of other part of right lower leg with muscle involvement without evidence of necrosis (principal); L89.892 Pressure ulcer of other site, stage 2; L97.519 Non-pressure chronic ulcer of other part of right foot with unspecified severity; I73.9 Peripheral vascular disease, unspecified; M79.675 Pain in left toe(s); I10 Essential (primary) hypertension; G47.33 Obstructive sleep apnea (adult) (pediatric); M06.9 Rheumatoid arthritis, unspecified; J45.909 Unspecified asthma, uncomplicated; K21.9 Gastro-esophageal reflux disease without esophagitis; I48.91 Unspecified atrial fibrillation; Z79.01 Long term (current) use of anticoagulants; I44.2 Atrioventricular block, complete; Z95.0 Presence of cardiac pacemaker; G25.81 Restless legs syndrome | CPT/HCPCS: A9270; G0463 ==

== ENCOUNTER 2020-08-21 09:08 | Day surgery (SDC) | payer MEDICARE, OTHER | END 2020-08-21 23:53 | disposition home or self-care (01) | LOC: WOUND 09:08 | DX: L97.812 Non-pressure chronic ulcer of other part of right lower leg with fat layer exposed (principal); L97.522 Non-pressure chronic ulcer of other part of left foot with fat layer exposed; L97.519 Non-pressure chronic ulcer of other part of right foot with unspecified severity; I73.9 Peripheral vascular disease, unspecified ==

== ENCOUNTER 2020-08-23 02:30 | Day surgery (SDC) | payer MEDICARE, OTHER | END 2020-08-23 23:18 | disposition home or self-care (01) | LOC: WOUND 02:30 | DX: L97.815 Non-pressure chronic ulcer of other part of right lower leg with muscle involvement without evidence of necrosis (principal); L89.892 Pressure ulcer of other site, stage 2; I73.9 Peripheral vascular disease, unspecified; M79.675 Pain in left toe(s) | CPT/HCPCS: A9270 ==

== ENCOUNTER 2020-08-31 00:41 | Day surgery (SDC) | payer MEDICARE, OTHER | END 2020-08-31 23:00 | disposition home or self-care (01) | LOC: WOUND 00:41 | DX: L97.812 Non-pressure chronic ulcer of other part of right lower leg with fat layer exposed (principal); L89.892 Pressure ulcer of other site, stage 2 | CPT/HCPCS: A9270 ==

== ENCOUNTER 2020-09-06 10:45 | Emergency (ER) | payer MEDICARE, OTHER ==
[~2020-09-06] VITALS: Ht 172.7 cm; Wt 75.8 kg
[2020-09-06 11:16] LABS: BASOPHILS ABSOLUTE AUTO 0.04 K/mm3 (0.00-0.23); BASOPHILS PERCENT AUTO 0 % (0-2); EOSINOPHILS ABSOLUTE AUTO 0.03 K/mm3 (0.00-0.68); EOSINOPHILS PERCENT AUTO 0 % (0-6); Hematocrit 45.1 % (33.0-51.0); Hemoglobin 14.3 g/dL (11.5-16.0); IMMATURE GRAN ABSOLUTE AUTO 0.12 K/mm3 (0.00-0.10); IMMATURE GRAN PERCENT AUTO 1 % (0-1); LYMPHOCYTES ABSOLUTE AUTO 0.44 K/mm3 (0.84-5.20); LYMPHOCYTES PERCENT AUTO 3 % (21-46); MONOCYTES ABSOLUTE AUTO 1.27 K/mm3 (0.16-1.47); MONOCYTES PERCENT AUTO 7 % (4-13); Mean Corpuscular HGB 30.6 pg (26.0-34.0); Mean Corpuscular HGB Conc 31.7 g/dL (31.5-36.5); Mean Corpuscular Volume 97 fL (80-100); Mean Platelet Volume 10.6 fL (9.1-12.4); NEUTROPHILS PERCENT AUTO 89 % (41-73); Platelet Count 124 K/mm3 (150-400); RDW Coefficient Variation 14.2 % (11.7-14.2); RDW Standard Deviation 49.4 fL (35.1-46.3); Red Blood Cell Count 4.67 M/mm3 (3.80-5.20)
[2020-09-06 11:32] LABS: Anion Gap 1 mmol/L (6-16); Blood Urea Nitrogen 17 mg/dL (8-24); Bun/Creatinine Ratio 21.5 (12.0-20.0); CO2, Blood 29 mmol/L (21-32); Calcium, Blood 9.5 mg/dL (8.5-10.1); Chloride, Blood 107 mmol/L (98-108); Creatinine, Blood 0.79 mg/dL (0.40-1.00); Glomerular Filtration Rate >60 (60-); Glucose, Blood 129 mg/dL (70-99); Potassium, Blood 4.2 mmol/L (3.5-5.5); Sodium, Blood 137 mmol/L (136-145)
[2020-09-06 11:48] LABS: Source, Urine Clean Catch
[2020-09-06 11:52] LABS: Appearance, Urine Clear (Clear); Bilirubin, Urine Neg (Neg); Blood, Urine 3+ (Neg); Color, Urine Yellow (P-Yellow); Glucose Qualitative, Urine Neg (Neg); Ketones, Urine Neg (Neg); Leukocyte Esterase, Urine 2+ (Neg); Nitrite, Urine Neg (Neg); Protein, Urine 1+ (Neg); Urobilinogen, Urine 1+ (Normal)
[2020-09-06 12:11] LABS: Bacteria Few /hpf; Squamous Epithelial Cells Mod /hpf (Few)
[2020-09-06] MEDS ORDERED: ONDA4ODT MM (12:23)
[2020-09-06] MEDS ORDERED: CEPH500 PO (12:23)
== END 2020-09-06 16:46 | disposition home or self-care (01) ==
LOC: ER 10:45
PROVIDERS: Emergency Medicine
DX: N39.0 Urinary tract infection, site not specified (principal); I10 Essential (primary) hypertension; K21.9 Gastro-esophageal reflux disease without esophagitis; Z88.2 Allergy status to sulfonamides; Z88.8 Allergy status to other drugs, medicaments and biological substances; Z79.899 Other long term (current) drug therapy
CPT/HCPCS: 36415; 80048; 81001; 85025; 87077; 87086; 87186; 93005; 93010; 99283-25

== ENCOUNTER 2020-09-07 01:18 | Day surgery (SDC) | payer MEDICARE, OTHER | END 2020-09-07 22:48 | disposition home or self-care (01) | LOC: WOUND 01:18 | DX: L97.812 Non-pressure chronic ulcer of other part of right lower leg with fat layer exposed (principal); L97.822 Non-pressure chronic ulcer of other part of left lower leg with fat layer exposed; L89.892 Pressure ulcer of other site, stage 2; I73.9 Peripheral vascular disease, unspecified; I10 Essential (primary) hypertension; J45.909 Unspecified asthma, uncomplicated; G47.33 Obstructive sleep apnea (adult) (pediatric); M06.9 Rheumatoid arthritis, unspecified; K21.9 Gastro-esophageal reflux disease without esophagitis; I48.0 Paroxysmal atrial fibrillation; Z79.01 Long term (current) use of anticoagulants; Z95.0 Presence of cardiac pacemaker; Z96.653 Presence of artificial knee joint, bilateral | CPT/HCPCS: A9270 ==

== ENCOUNTER 2020-09-14 01:40 | Day surgery (SDC) | payer MEDICARE, OTHER | END 2020-09-14 12:00 | disposition home or self-care (01) | LOC: WOUND 01:40 | DX: L97.812 Non-pressure chronic ulcer of other part of right lower leg with fat layer exposed (principal); L97.522 Non-pressure chronic ulcer of other part of left foot with fat layer exposed; L97.822 Non-pressure chronic ulcer of other part of left lower leg with fat layer exposed; I73.9 Peripheral vascular disease, unspecified; I10 Essential (primary) hypertension; J45.909 Unspecified asthma, uncomplicated; G47.33 Obstructive sleep apnea (adult) (pediatric); M06.9 Rheumatoid arthritis, unspecified; K21.9 Gastro-esophageal reflux disease without esophagitis; I48.91 Unspecified atrial fibrillation; I44.2 Atrioventricular block, complete; Z95.0 Presence of cardiac pacemaker; G89.4 Chronic pain syndrome | CPT/HCPCS: A9270 ==

== ENCOUNTER 2020-09-21 01:09 | Day surgery (SDC) | payer MEDICARE, OTHER | END 2020-09-21 23:18 | disposition home or self-care (01) | LOC: WOUND 01:09 | DX: L97.812 Non-pressure chronic ulcer of other part of right lower leg with fat layer exposed (principal); L89.892 Pressure ulcer of other site, stage 2; S81.802A Unspecified open wound, left lower leg, initial encounter; I73.9 Peripheral vascular disease, unspecified; I10 Essential (primary) hypertension; J45.909 Unspecified asthma, uncomplicated; G47.33 Obstructive sleep apnea (adult) (pediatric); M06.9 Rheumatoid arthritis, unspecified; K21.9 Gastro-esophageal reflux disease without esophagitis; M81.0 Age-related osteoporosis without current pathological fracture; H40.9 Unspecified glaucoma; I48.0 Paroxysmal atrial fibrillation; Z79.01 Long term (current) use of anticoagulants; G25.81 Restless legs syndrome; Z86.14 Personal history of Methicillin resistant Staphylococcus aureus infection; Z87.81 Personal history of (healed) traumatic fracture; Z88.2 Allergy status to sulfonamides; Z88.8 Allergy status to other drugs, medicaments and biological substances; X58.XXXA Exposure to other specified factors, initial encounter | CPT/HCPCS: A9270 ==

== ENCOUNTER 2020-09-28 00:24 | Day surgery (SDC) | payer MEDICARE, OTHER | END 2020-09-28 23:00 | disposition home or self-care (01) | LOC: WOUND 00:24 | DX: L97.822 Non-pressure chronic ulcer of other part of left lower leg with fat layer exposed (principal); L97.522 Non-pressure chronic ulcer of other part of left foot with fat layer exposed; I73.9 Peripheral vascular disease, unspecified | CPT/HCPCS: A9270 ==

== ENCOUNTER 2020-10-05 01:21 | Day surgery (SDC) | payer MEDICARE, OTHER | END 2020-10-05 23:41 | disposition home or self-care (01) | LOC: WOUND 01:21 | DX: L89.892 Pressure ulcer of other site, stage 2 (principal); L97.822 Non-pressure chronic ulcer of other part of left lower leg with fat layer exposed; L97.812 Non-pressure chronic ulcer of other part of right lower leg with fat layer exposed; S81.802A Unspecified open wound, left lower leg, initial encounter; X58.XXXA Exposure to other specified factors, initial encounter; I73.9 Peripheral vascular disease, unspecified; I10 Essential (primary) hypertension; J45.909 Unspecified asthma, uncomplicated; G47.33 Obstructive sleep apnea (adult) (pediatric); K21.9 Gastro-esophageal reflux disease without esophagitis; I48.0 Paroxysmal atrial fibrillation; G25.81 Restless legs syndrome; Z79.01 Long term (current) use of anticoagulants; Z95.0 Presence of cardiac pacemaker; Z96.653 Presence of artificial knee joint, bilateral | CPT/HCPCS: A9270 ==

== ENCOUNTER 2020-10-12 00:56 | Day surgery (SDC) | payer MEDICARE, OTHER | END 2020-10-12 23:59 | disposition home or self-care (01) | LOC: WOUND 00:56 | DX: L89.892 Pressure ulcer of other site, stage 2 (principal) | CPT/HCPCS: A9270 ==

== ENCOUNTER 2020-10-19 02:28 | Day surgery (SDC) | payer MEDICARE, OTHER | END 2020-10-19 23:30 | disposition home or self-care (01) | LOC: WOUND 02:28 | DX: L89.892 Pressure ulcer of other site, stage 2 (principal); L97.822 Non-pressure chronic ulcer of other part of left lower leg with fat layer exposed; L97.812 Non-pressure chronic ulcer of other part of right lower leg with fat layer exposed; L97.522 Non-pressure chronic ulcer of other part of left foot with fat layer exposed; I10 Essential (primary) hypertension; J45.909 Unspecified asthma, uncomplicated; M06.9 Rheumatoid arthritis, unspecified; I73.9 Peripheral vascular disease, unspecified; Z95.0 Presence of cardiac pacemaker; Z88.8 Allergy status to other drugs, medicaments and biological substances | CPT/HCPCS: A9270 ==

== ENCOUNTER 2020-10-26 02:57 | Day surgery (SDC) | payer MEDICARE, OTHER | END 2020-10-26 23:32 | disposition home or self-care (01) | LOC: WOUND 02:57 | DX: S81.802A Unspecified open wound, left lower leg, initial encounter (principal); X58.XXXA Exposure to other specified factors, initial encounter; L89.892 Pressure ulcer of other site, stage 2; L97.812 Non-pressure chronic ulcer of other part of right lower leg with fat layer exposed; L97.522 Non-pressure chronic ulcer of other part of left foot with fat layer exposed; L97.822 Non-pressure chronic ulcer of other part of left lower leg with fat layer exposed; I73.9 Peripheral vascular disease, unspecified; I10 Essential (primary) hypertension; J45.909 Unspecified asthma, uncomplicated; G47.33 Obstructive sleep apnea (adult) (pediatric); K21.9 Gastro-esophageal reflux disease without esophagitis | CPT/HCPCS: A9270 ==

== ENCOUNTER 2020-11-02 01:12 | Day surgery (SDC) | payer MEDICARE, OTHER | END 2020-11-02 23:14 | disposition home or self-care (01) | LOC: WOUND 01:12 | PROC: 2W1RX6Z Compression of Left Lower Leg using Pressure Dressing (ICD-10-PCS; principal; 2020-11-02) | DX: L97.822 Non-pressure chronic ulcer of other part of left lower leg with fat layer exposed (principal); L97.522 Non-pressure chronic ulcer of other part of left foot with fat layer exposed; I96 Gangrene, not elsewhere classified; I10 Essential (primary) hypertension; J45.909 Unspecified asthma, uncomplicated; G47.33 Obstructive sleep apnea (adult) (pediatric); M06.9 Rheumatoid arthritis, unspecified; K21.9 Gastro-esophageal reflux disease without esophagitis; M81.0 Age-related osteoporosis without current pathological fracture; I48.0 Paroxysmal atrial fibrillation; Z95.0 Presence of cardiac pacemaker; Z86.14 Personal history of Methicillin resistant Staphylococcus aureus infection; Z96.653 Presence of artificial knee joint, bilateral | CPT/HCPCS: A9270 ==

== ENCOUNTER 2020-11-09 01:36 | Day surgery (SDC) | payer MEDICARE, OTHER | END 2020-11-09 23:26 | disposition home or self-care (01) | LOC: WOUND 01:36 | DX: L97.522 Non-pressure chronic ulcer of other part of left foot with fat layer exposed (principal); L97.822 Non-pressure chronic ulcer of other part of left lower leg with fat layer exposed; L89.892 Pressure ulcer of other site, stage 2; I73.9 Peripheral vascular disease, unspecified; I10 Essential (primary) hypertension; J45.909 Unspecified asthma, uncomplicated; G47.33 Obstructive sleep apnea (adult) (pediatric); M06.9 Rheumatoid arthritis, unspecified; K21.9 Gastro-esophageal reflux disease without esophagitis; I44.2 Atrioventricular block, complete; G89.4 Chronic pain syndrome; G25.81 Restless legs syndrome | CPT/HCPCS: A9270 ==

== ENCOUNTER 2020-11-15 01:29 | Day surgery (SDC) | payer MEDICARE, OTHER | END 2020-11-15 23:06 | disposition home or self-care (01) | LOC: WOUND 01:29 | DX: L97.522 Non-pressure chronic ulcer of other part of left foot with fat layer exposed (principal); L97.822 Non-pressure chronic ulcer of other part of left lower leg with fat layer exposed; I73.9 Peripheral vascular disease, unspecified; I10 Essential (primary) hypertension; J45.909 Unspecified asthma, uncomplicated; G47.33 Obstructive sleep apnea (adult) (pediatric); M06.9 Rheumatoid arthritis, unspecified; K21.9 Gastro-esophageal reflux disease without esophagitis; I44.2 Atrioventricular block, complete; Z88.1 Allergy status to other antibiotic agents; Z88.8 Allergy status to other drugs, medicaments and biological substances | CPT/HCPCS: A9270 ==

== ENCOUNTER 2020-11-23 00:38 | Day surgery (SDC) | payer MEDICARE, OTHER | END 2020-11-23 12:00 | disposition home or self-care (01) | LOC: WOUND 00:38 | DX: L89.892 Pressure ulcer of other site, stage 2 (principal); L97.522 Non-pressure chronic ulcer of other part of left foot with fat layer exposed; L97.822 Non-pressure chronic ulcer of other part of left lower leg with fat layer exposed; I73.9 Peripheral vascular disease, unspecified; I10 Essential (primary) hypertension; J45.909 Unspecified asthma, uncomplicated; G47.33 Obstructive sleep apnea (adult) (pediatric); M06.9 Rheumatoid arthritis, unspecified; K21.9 Gastro-esophageal reflux disease without esophagitis; I48.91 Unspecified atrial fibrillation; I44.2 Atrioventricular block, complete; Z95.0 Presence of cardiac pacemaker; G89.4 Chronic pain syndrome; G25.81 Restless legs syndrome; Z79.899 Other long term (current) drug therapy; Z79.01 Long term (current) use of anticoagulants; Z88.2 Allergy status to sulfonamides; Z88.8 Allergy status to other drugs, medicaments and biological substances | CPT/HCPCS: A9270 ==

== ENCOUNTER 2020-11-30 01:18 | Day surgery (SDC) | payer MEDICARE, OTHER | END 2020-11-30 23:50 | disposition home or self-care (01) | LOC: WOUND 01:18 | DX: L89.892 Pressure ulcer of other site, stage 2 (principal); L97.522 Non-pressure chronic ulcer of other part of left foot with fat layer exposed; L97.822 Non-pressure chronic ulcer of other part of left lower leg with fat layer exposed; I73.9 Peripheral vascular disease, unspecified; I10 Essential (primary) hypertension; J45.909 Unspecified asthma, uncomplicated; G47.33 Obstructive sleep apnea (adult) (pediatric); M06.9 Rheumatoid arthritis, unspecified; K21.9 Gastro-esophageal reflux disease without esophagitis; I44.2 Atrioventricular block, complete; I48.91 Unspecified atrial fibrillation; G89.4 Chronic pain syndrome; Z88.8 Allergy status to other drugs, medicaments and biological substances | CPT/HCPCS: A9270 ==

== ENCOUNTER 2020-12-07 04:16 | Day surgery (SDC) | payer MEDICARE, OTHER | END 2020-12-07 23:48 | disposition home or self-care (01) | LOC: WOUND 04:16 | DX: L89.892 Pressure ulcer of other site, stage 2 (principal); L97.822 Non-pressure chronic ulcer of other part of left lower leg with fat layer exposed; L97.522 Non-pressure chronic ulcer of other part of left foot with fat layer exposed; I73.9 Peripheral vascular disease, unspecified | CPT/HCPCS: A9270; G0463 ==

== ENCOUNTER 2020-12-21 05:31 | Day surgery (SDC) | payer MEDICARE, OTHER | END 2020-12-21 23:50 | disposition home or self-care (01) | LOC: WOUND 05:31 | DX: S81.802A Unspecified open wound, left lower leg, initial encounter (principal); V00.818A Other accident with wheelchair (powered), initial encounter; I73.9 Peripheral vascular disease, unspecified; I10 Essential (primary) hypertension; J45.909 Unspecified asthma, uncomplicated; G47.33 Obstructive sleep apnea (adult) (pediatric); M06.9 Rheumatoid arthritis, unspecified; K21.9 Gastro-esophageal reflux disease without esophagitis; I48.91 Unspecified atrial fibrillation; Z79.01 Long term (current) use of anticoagulants; I44.2 Atrioventricular block, complete; Z95.0 Presence of cardiac pacemaker; G89.4 Chronic pain syndrome; G25.81 Restless legs syndrome; Z88.8 Allergy status to other drugs, medicaments and biological substances | CPT/HCPCS: A9270; G0463 ==

== ENCOUNTER 2021-06-06 07:42 | Emergency (ER) | payer MEDICARE, OTHER ==
[~2021-06-06] VITALS: Ht 170.2 cm; Wt 83.0 kg
[2021-06-06 08:23] LABS: Hematocrit 44.2 % (33.0-51.0); Hemoglobin 14.3 g/dL (11.5-16.0); Mean Corpuscular HGB 31.4 pg (26.0-34.0); Mean Corpuscular HGB Conc 32.4 g/dL (31.5-36.5); Mean Corpuscular Volume 97 fL (80-100); Mean Platelet Volume 10.7 fL (9.1-12.4); Platelet Count 92 K/mm3 (150-400); RDW Coefficient Variation 13.5 % (11.7-14.2); RDW Standard Deviation 47.4 fL (35.1-46.3); Red Blood Cell Count 4.56 M/mm3 (3.80-5.20); White Blood Cell Count 9.69 K/mm3 (4.00-11.30)
[2021-06-06 08:40] LABS: Alanine Aminotransfer (ALT/SGP 27 U/L (12-78); Albumin, Blood 3.4 g/dL (3.4-5.0); Alk Phos 65 U/L (50-136); Anion Gap 8 mmol/L (6-16); Aspartate Aminotrans (AST/SGOT 26 U/L (12-37); Blood Urea Nitrogen 19 mg/dL (8-24); Bun/Creatinine Ratio 28.5 (12.0-20.0); CO2, Blood 29 mmol/L (21-32); Calcium, Blood 9.6 mg/dL (8.5-10.1); Chloride, Blood 106 mmol/L (98-108); Creatinine, Blood 0.67 mg/dL (0.40-1.00); Globulin, Blood 3.4 g/dL (2.2-4.0); Glomerular Filtration Rate >60 (60-); Glucose, Blood 100 mg/dL (70-99); Magnesium, Blood 1.7 mg/dL (1.6-2.4); Potassium, Blood 3.8 mmol/L (3.5-5.5); Sodium, Blood 143 mmol/L (136-145); Total Protein, Blood 6.8 g/dL (6.4-8.2)
[2021-06-06 08:42] LABS: Source, Urine Straight Cath
[2021-06-06 08:47] LABS: BAND PERCENT MAN 9 % (0-8); BASOPHILS PERCENT MAN 0 % (0-2); EOSINOPHILS ABSOLUTE MAN 0.19 K/mm3 (0.00-0.68); EOSINOPHILS PERCENT MAN 2 % (0-6); LYMPHOCYTES ABSOLUTE MAN 0.29 K/mm3 (0.84-5.20); LYMPHOCYTES PERCENT MAN 3 % (21-46); MONOCYTES ABSOLUTE MAN 0.38 K/mm3 (0.16-1.47); MONOCYTES PERCENT MAN 4 % (4-13); NEUTROPHILS ABSOLUTE MAN 8.81 K/mm3 (1.96-9.15); SEG NEUTROPHILS PERCENT MAN 82 % (41-73); TOTAL CELLS COUNTED 100
[2021-06-06 08:52] LABS: Appearance, Urine Hazy (Clear); Bilirubin, Urine Neg (Neg); Blood, Urine 4+ (Neg); Color, Urine Yellow (P-Yellow); Glucose Qualitative, Urine Neg (Neg); Ketones, Urine Neg (Neg); Leukocyte Esterase, Urine 3+ (Neg); Nitrite, Urine Pos (Neg); Protein, Urine Neg (Neg); Urobilinogen, Urine NORM (Normal)
[2021-06-06 09:05] LABS: Bacteria Many /hpf; Red Blood Cells, Urine 50-100 /hpf (0-2); Squamous Epithelial Cells Rare /hpf (Few); White Blood Cells, Urine TNTC /hpf (0-5)
[2021-06-06] MEDS ORDERED: CEPH500 PO (09:16)
[2021-06-06] MEDS ORDERED: Pyridium100 MG PO (09:16)
== END 2021-06-06 12:40 | disposition home or self-care (01) ==
LOC: ER 07:42
PROVIDERS: Emergency Medicine
DX: N30.90 Cystitis, unspecified without hematuria (principal); R42 Dizziness and giddiness; M06.9 Rheumatoid arthritis, unspecified; K21.9 Gastro-esophageal reflux disease without esophagitis; I10 Essential (primary) hypertension; Z79.899 Other long term (current) drug therapy; Z88.2 Allergy status to sulfonamides; Z88.8 Allergy status to other drugs, medicaments and biological substances
CPT/HCPCS: 36415; 71045; 80053; 81001; 83735; 84484; 85025; 87077; 87086; 87186; 93005; 93010; 96374; 96375; 99284-25; J0696; J2405; J7030

== ENCOUNTER 2022-01-13 16:41 | Inpatient (IN) | payer MEDICARE, OTHER ==
[~2022-01-13] VITALS: Ht 172.7 cm; Wt 84.7 kg
[~2022-01-13 16:41] MED LIST changes: -ARTIFICIAL TEAR15 M2 BOTHEYES; -CALCIUM CIT 311 EAC7 PO; -INCRUSE ELLIPTA 62.5; +INCRUSE ELLIPTA 62.5 INH; +ISTALOL2.5 M2 BOTHEYES; -PRED5 PO; +Pyridium100 MG PO; +REFRESH BOTHEYES; -ROPINIROLE HC0.25 M1 PO; -TIMO10T; +VITAMIN D3 PO
[2022-01-13 20:14] LABS: BASOPHILS ABSOLUTE AUTO 0.02 K/mm3 (0.00-0.23); BASOPHILS PERCENT AUTO 0 % (0-2); EOSINOPHILS ABSOLUTE AUTO 0.06 K/mm3 (0.00-0.68); EOSINOPHILS PERCENT AUTO 1 % (0-6); Hematocrit 35.2 % (33.0-51.0); Hemoglobin 11.5 g/dL (11.5-16.0); IMMATURE GRAN ABSOLUTE AUTO 0.06 K/mm3 (0.00-0.10); IMMATURE GRAN PERCENT AUTO 1 % (0-1); LYMPHOCYTES ABSOLUTE AUTO 0.99 K/mm3 (0.84-5.20); LYMPHOCYTES PERCENT AUTO 8 % (21-46); MONOCYTES ABSOLUTE AUTO 0.77 K/mm3 (0.16-1.47); MONOCYTES PERCENT AUTO 6 % (4-13); Mean Corpuscular HGB 31.3 pg (26.0-34.0); Mean Corpuscular HGB Conc 32.7 g/dL (31.5-36.5); Mean Corpuscular Volume 96 fL (80-100); Mean Platelet Volume 10.8 fL (9.1-12.4); NEUTROPHILS ABSOLUTE AUTO 11.35 K/mm3 (1.96-9.15); NEUTROPHILS PERCENT AUTO 86 % (41-73); NRBC ABSOLUTE 0.02 K/mm3 (0.00-0.02); NRBC Auto 0.2 /100 WBC (0.0-0.2); Platelet Count 158 K/mm3 (150-400); RDW Coefficient Variation 13.3 % (11.7-14.2); RDW Standard Deviation 46.8 fL (35.1-46.3); Red Blood Cell Count 3.67 M/mm3 (3.80-5.20); White Blood Cell Count 13.25 K/mm3 (4.00-11.30)
[2022-01-13 20:39] LABS: Albumin, Blood 2.9 g/dL (3.4-5.0); Bilirubin, Total 0.7 mg/dL (0.1-1.0); Bun/Creatinine Ratio 26.1 (12.0-20.0); Calcium, Blood 8.9 mg/dL (8.5-10.1); Creatinine, Blood 0.73 mg/dL (0.40-1.00); Potassium, Blood 5.2 mmol/L (3.5-5.5); Total Protein, Blood 5.9 g/dL (6.4-8.2)
[2022-01-14 00:20] LABS: Calcium, Ionized (POC) 1.06 mmol/L (1.10-1.46); Chloride (POC) 107 mmol/L (98-108); Creatinine (POC) 0.6 mg/dL (0.6-1.0); Glucose (ISTAT POC) 124 mg/dL (70-99); Hemoglobin (POC) 11.6 g/dL (12.0-16.0); Potassium (POC) 4.4 mmol/L (3.5-5.5); Sodium (POC) 141 mmol/L (135-148); Total CO2 (POC) 24 mmol/L (21-32)
[2022-01-14] MEDS ORDERED: RECLAST IV (01:34)
[2022-01-14] MEDS ORDERED: SUCR1 PO (01:39)
[2022-01-14] MEDS ORDERED: [UNRECOGNIZED DRUG - OTHER] TOP (01:46)
[2022-01-14] MEDS ORDERED: GERI-LANTA PO (01:55)
[2022-01-14 01:57] LABS: Hematocrit 35.5 % (33.0-51.0); Hemoglobin 11.4 g/dL (11.5-16.0)
[2022-01-14] MEDS ORDERED: LOPE2C PO (01:58)
[2022-01-14 02:01] LABS: International Normalized Ratio 1.42; Prothrombin Time Results 14.6 Sec (9.7-11.5)
--- NOTE | 2022-01-14 03:16 | NUR ---
RECIEVED PT FROM ED REPORT WAS GIVEN BY ALISE LAWTON ON ARIVIAL PT APPEARS VERY UNCONFORTABLE AND WHEN TRYING TO FIGURE OUT HOW TO MOVE THIS PT ASKING ER NURSE IF THEY HAVE SCANNED PELVIS NOT HE STATED HE WAS UNSURE. CALLED KEELY TO DISCUSS MY CONCERNS HE STATED THAT COULD SCAN HER PELVIS IN AM. I FEEL VERY UNCOMFORTABLE MOVINING THE PT CONSIDERING PELVIS WASNT SCANNED AND WITH PALPATION LIGHT PRESSURE ON HIP PT STATES CAUSES PAIN. PT WAS AND STILL IS COVERED IN URIN. AN ALTERNATIVE TO A SMITH PLACEMENT AND SO SHE DIDNT CONTINUE TO GET SATURATED WITH URIN i PLACED A PURWIC. AFTER LONG DISCUSSION DELORISHT OTHER MEMBER OF TEAM WE WILL BE LOG ROLLING AND CLEANING HER UP SOON WE CAN GATHER ENOUGH HANDS AND WILL GIVE A PREEMPTIVE DOSE OF PAIN MEDS FOR THE REPOSISTION
[2022-01-14 06:00] LABS: Source, Urine Foley catheter
[2022-01-14 06:12] LABS: Appearance, Urine Cloudy (Clear); Bilirubin, Urine Neg (Neg); Blood, Urine 4+ (Neg); Color, Urine Yellow (P-Yellow); Glucose Qualitative, Urine Neg (Neg); Ketones, Urine Neg (Neg); Leukocyte Esterase, Urine 3+ (Neg); Nitrite, Urine Neg (Neg); Protein, Urine 2+ (Neg); Specific Gravity, Urine 1.025 (1.003-1.022); Urobilinogen, Urine NORM (Normal)
[2022-01-14 06:30] LABS: Bacteria Many /hpf; Squamous Epithelial Cells Few /hpf (Few); White Blood Cells, Urine 50-100 /hpf (0-5)
[2022-01-14 06:31] LABS: Granular Casts 0-2 /lpf (0); WBC Cast 0-2 /lpf (0)
--- NOTE | 2022-01-14 07:15 | NUR ---
ASSUMED CARE: REPORT RECEIVED FROM TAYLA Bolden RN. ASSUMED CARE OF THIS PT AT APPROX 0700. ON ASSESSMENT, THE PT IS AWAKE, A&O TO ALL, HAS SOME DIFFICULTY FINDING THE CORRECT WORDS & IS SLOW TO RESPOND. SHE STS HAVING PAIN IN BOTH OF HER LEGS & CIARA, WELL CHRONIC BACK PAIN PAIRED W/ NEW FLANK PAIN SINCE GLF. LS ARE DIM T/O, PT STS UNABLE TO TAKE A DEEP BREATH R/T PAIN LEVEL. ON 6L NC W/ O2 SATS > 90% ON AVG. MONITOR SHOWS 100% V-PACED RHYTHM W/ HR 90-100s, HYPOTENSIVE W/ SBP 80-90s, MAP > 65 ON AVG. INTERMITTENT C/O NAUSEA W/ MEDS PER EMAR. TEMP SMITH PATENT/ DRAINING JAYSON URINE IN SCANT AMNTS. SMITH PLACED BY NOC SHIFT RN & UA SENT AT THAT TIME. SKIN CONDITION OVERALL FRAGILE. LARGE AREAS OF ECCHYMOSIS NOTED TO CIARA & RIGHT FLANK/ HIP. BLE W/ SPLINTS IN PLACE. Q2H REPOSITIONING TO MAINTAIN SKIN INTEGRITY. WILL CONTINUE TO MONITOR & UPDATE NEEDED.
[2022-01-14 07:22] LABS: BASOPHILS ABSOLUTE AUTO 0.03 K/mm3 (0.00-0.23); BASOPHILS PERCENT AUTO 0 % (0-2); EOSINOPHILS ABSOLUTE AUTO 0.01 K/mm3 (0.00-0.68); EOSINOPHILS PERCENT AUTO 0 % (0-6); Hematocrit 34.9 % (33.0-51.0); IMMATURE GRAN ABSOLUTE AUTO 0.12 K/mm3 (0.00-0.10); IMMATURE GRAN PERCENT AUTO 1 % (0-1); LYMPHOCYTES ABSOLUTE AUTO 1.27 K/mm3 (0.84-5.20); LYMPHOCYTES PERCENT AUTO 7 % (21-46); MONOCYTES ABSOLUTE AUTO 1.85 K/mm3 (0.16-1.47); MONOCYTES PERCENT AUTO 11 % (4-13); Mean Corpuscular HGB 30.4 pg (26.0-34.0); Mean Corpuscular HGB Conc 31.5 g/dL (31.5-36.5); Mean Corpuscular Volume 96 fL (80-100); Mean Platelet Volume 11.2 fL (9.1-12.4); NEUTROPHILS ABSOLUTE AUTO 14.18 K/mm3 (1.96-9.15); NEUTROPHILS PERCENT AUTO 81 % (41-73); NRBC ABSOLUTE 0.06 K/mm3 (0.00-0.02); NRBC Auto 0.3 /100 WBC (0.0-0.2); Platelet Count 128 K/mm3 (150-400); RDW Coefficient Variation 14.4 % (11.7-14.2); RDW Standard Deviation 50.1 fL (35.1-46.3); Red Blood Cell Count 3.62 M/mm3 (3.80-5.20); White Blood Cell Count 17.46 K/mm3 (4.00-11.30)
[2022-01-14 07:40] LABS: Albumin, Blood 2.7 g/dL (3.4-5.0); Bilirubin, Total 1.4 mg/dL (0.1-1.0); Bun/Creatinine Ratio 29.8 (12.0-20.0); Calcium, Blood 8.4 mg/dL (8.5-10.1); Creatinine, Blood 0.94 mg/dL (0.40-1.00); Globulin, Blood 2.7 g/dL (2.2-4.0); Potassium, Blood 5.6 mmol/L (3.5-5.5); Total Protein, Blood 5.4 g/dL (6.4-8.2)
--- NOTE | 2022-01-14 07:40 | NUR ---
DR ESCAMILLA: THIS RN HAS CONTACTED DR ESCAMILLA & REQUESTED THAT SHE COME TO ICU FOR THIS PT. THIS RN REQUESTS FURTHER IMAGING STUDIES & ORTHO CONSULT FOR THIS PT. ORDER PLACED FOR CTs OF HEAD & ABD/ PELVIS W/O CONTRAST & DR ESPINOZA HAS BEEN CONTACTED IN REGARDS TO CONSULT. PAIN MANAGEMENT HAS ALSO BEEN DISCUSSED THE PT HAD A BRIEF APNEIC PERIOD W/ DESATS NOTED TO 70s AFTER FENTANYL GIVEN DURING THE NIGHT. DOSE OF FENTANYL LOWERED IN REGARDS TO THIS. PLAN IS TO [place] TX THIS PT FOR A HIGHER LEVEL OF CARE WHEN BED AVAILABLE. DR ESCAMILLA REQUESTS THIS RN FOLLOW-UP W/ HOSPITALS TO DETERMINE IF BED AVAILABILITY HAS CHANGED. NO OTHER CHANGES AT THIS TIME.
--- NOTE | 2022-01-14 09:10 | NUR ---
DR ESCAMILLA: CALL TO PROVIDER REGARDING PT's CONTINUED C/O PAIN. FENTANYL GIVEN PER ORDERS & ALLOWED THE PT TO REST FOR APPROX 20 MINS, AFTER WHICH TIME SHE AWOKE W/ CONTINUED PAIN. THIS RN REQUESTS ORAL PAIN MEDICATION TO HELP MANAGE PT's PAIN FOR A LONGER PERIOD OF TIME. DR ESCAMILLA STS THAT SHE WILL PLACE ORDERS FOR THE PT TO RECEIVE NORCO.
[2022-01-14 10:06] LABS: Hematocrit 32.1 % (33.0-51.0); Hemoglobin 10.7 g/dL (11.5-16.0)
--- NOTE | 2022-01-14 10:06 | NUR ---
Spoke with Primary RN Janis and discussed case. Pt resting in bed and is A&OX4. Pt reports 10/10 pain in her lower back, legs, and arm. Engaged in therapeutic discussion regarding code status. Educated on life sustaining treament including risk factors and implications of CPR. Pt states wanting to be a DNR but would like her niece Suzette's input first. Received verbal permission to from Pt to call her niece Suzette. Called and spoke with niwayne Bradford. Provided update and reviewed plan of care. Relayed conversation that took place with Pt. Suzette reports that Pt should be a DNR but will support any decision Pt makes. Suzette expresses appreciation. F/U with Pt and relayed niwayne Bradford's thoughts. Pt reports wanting to be DNR. Spoke with Dr Pedraza and dicussed case. Placed DNR order in [facility] per V/O from Dr Pedraza. Palliative Care will remain available.
--- NOTE | 2022-01-14 10:35 | NUR ---
IMAGING: PT OUT OF ROOM W/ THIS RN AT APPROX [address] SCANS. SHE HAS TOLERATED THIS WELL W/ MINIMAL C/O PAIN AFTER NORCO PER EMAR. VSS.
--- NOTE | 2022-01-14 10:57 | NUR ---
Spiritual Care Visit. Pt. is somnolent but responds when I enter the room. Pt. communicates non-verbally with nods. Prayed with Pt. With multiple nods the pt. communicated gratitude for the spiritual care visit and welcomed this youth teacher to check on her again.
[2022-01-14 13:59] LABS: Hematocrit 31.1 % (33.0-51.0); Hemoglobin 10.5 g/dL (11.5-16.0)
--- NOTE | 2022-01-14 15:28 | NUR ---
Received call from Pt's Primary RN Janis reporting Pt stating wanting to . She reports plan to call Pt's niece Suzette. Arrived to Pt's room. Engaged in therapeutic discussion regarding goals of care. Pt confirms plan to discuss further with her nieces. She reports being reading to pass away. Educated on comfort care philosophy with Pt V/U. Continued supportive visit. Palliative Care will F/U for therapeutic visits.
[2022-01-14 17:34] LABS: Albumin, Blood 2.6 g/dL (3.4-5.0); Anion Gap 9 mmol/L (6-16); Blood Urea Nitrogen 30 mg/dL (8-24); Bun/Creatinine Ratio 21.7 (12.0-20.0); CO2, Blood 20 mmol/L (21-32); Calcium, Blood 8.1 mg/dL (8.5-10.1); Chloride, Blood 112 mmol/L (98-108); Creatinine, Blood 1.38 mg/dL (0.40-1.00); Glomerular Filtration Rate 39 (60-); Glucose, Blood 142 mg/dL (70-99); Phosphorus, Blood 5.8 mg/dL (2.5-4.9); Potassium, Blood 5.6 mmol/L (3.5-5.5); Sodium, Blood 141 mmol/L (136-145)
--- NOTE | 2022-01-14 18:20 | NUR ---
SHIFT SUMMARY: PT CONDITION HAS CONTINUED TO DETERIORATE THROUGHOUT THIS SHIFT. SHE CONTINUES HAVING C/O SEVERE PAIN TO HER BACK/ FLANKS AT REST & PAIN TO HER BLE/ LUE W/ MOVEMENT. THIS RN IS UNABLE TO MEDICATE THE PT FULLY R/T PERSISTANT HYPOTENSION, MEDS PER EMAR. SHE HAS REMAINED CONFUSED AT TIMES & IS SLOW TO RESPOND. LS DIM T/O, PT ON 2L NC W/ O2 SATS > 90% ON AVG. DURING THE AFTERNOON, SHE DID HAVE AN EPISODE OF APNEA W/ DESATS TO 43%. SHE RECOVERED QUICKLY W/ 15L NRB & NO PAIN MEDICINE WAS GIVEN DIRECTLY PRIOR TO THIS EVENT. MONITOR SHOWS 100% V-PACED RHYTHM W/ HR 90-100s, PERSIST HYPOTENSION W/ LEVOPHED INFUSING AT 4 MCG/MIN, MAP MAINTAINING > 65. PT TOLERATING SIPS OF WATER OR JUICE & APPLESAUCE W/ PILLS. STS HAVING INTERMITTENT NAUSEA W/ MEDS PER EMAR. SMITH PATENT/ DRAINING 20 ML DARK YELLOW URINE THIS SHIFT. PROVIDER AWARE OF CONTINUED LOW UO & CRITICAL LAB VALUES. ORDERS PLACED REGARDING THIS. SKIN OVERALL FRAGILE & ECCHYMOTIC. LARGE AREA OF ECCHYMOSIS TO LUE HAS WORSENED THROUGHOUT THIS SHIFT & IS NOW A DEEP PURPLE COLOR THAT COVERS MOST OF THE ARM. Q2H REPOSITIONING TO MAINTAIN SKIN INTEGRITY. PT's NIECE, JESSIE, IS HEADED TO THE HOSPITAL FROM [place] & EXPECTED TO ARRIVE AROUND 1930 THIS EVENING. WILL CONTINUE TO MONITOR & REPORT OFF TO ONCOMING RN.
[2022-01-14 18:47] LABS: Hematocrit 29.9 % (33.0-51.0); Hemoglobin 9.6 g/dL (11.5-16.0)
[2022-01-14 20:12] LABS: Hematocrit 29.6 % (33.0-51.0); Hemoglobin 9.7 g/dL (11.5-16.0)
[2022-01-14 20:28] LABS: Bun/Creatinine Ratio 21.3 (12.0-20.0); Calcium, Blood 7.9 mg/dL (8.5-10.1); Creatinine, Blood 1.78 mg/dL (0.40-1.00); Potassium, Blood 5.4 mmol/L (3.5-5.5)
--- NOTE | 2022-01-14 21:00 | NUR ---
PT DIFFICULT STICK, LAST FOREARM IV LEAKING. MULTIPLE ATTEMPTS MADE WITH NO SUCCESS. PT AND FAMILY EDUCATED ON ESCALATION OF CARE AND NEED TO MAINTAIN IV ACCESS FOR LEVO. PT STATED "JUST LET ME GO." NURSE THEN EDUCATED FAMILY ON WHAT COMFORT MEASURES ENTAIL. DR. WEBSTER CALLED AND SPOKE TO PT AND FAMILY, ALSO EDUCATING THEM ON THE PROCESS. PT AND FAMILY WANTED TO DISCUSS BEFORE MAKING A DECISION.
--- NOTE | 2022-01-14 22:30 | NUR ---
PT INFORMED NURSE SHE DOES NOT WANT ANOTHER LINE AND REAFFIRMED HER WANT TO GO COMFORT CARE. DOCTOR NOTIFIED AND ORDERS OBTAINED.
--- NOTE | 2022-01-15 00:37 | NUR ---
PT TIME OF CONFIRMED WITH CHARGE NURSE [place] AT 0019. DR. RIGGS NOTIFIED. FAMILY IN ROOM WITH PT.
== END 2022-01-15 00:19 | DRG 562 ==
LOC: ER 16:41 → ICUW 01-14 00:38
PROVIDERS: Emergency Medicine; Family Medicine; ADMIT Internal Medicine
PROC: 30233N1 Transfusion of Nonautologous Red Blood Cells into Peripheral Vein, Percutaneous Approach (ICD-10-PCS; principal; 2022-01-13)
PROC: 3E033XZ Introduction of Vasopressor into Peripheral Vein, Percutaneous Approach (ICD-10-PCS; 2022-01-14)
PROC: 3E03329 Introduction of Other Anti-infective into Peripheral Vein, Percutaneous Approach (ICD-10-PCS; 2022-01-14)
DX: S42.202A Unspecified fracture of upper end of left humerus, initial encounter for closed fracture (principal); A41.9 Sepsis, unspecified organism; R65.21 Severe sepsis with septic shock; S72.401A Unspecified fracture of lower end of right femur, initial encounter for closed fracture; S72.402A Unspecified fracture of lower end of left femur, initial encounter for closed fracture; M97.12XA Periprosthetic fracture around internal prosthetic left knee joint, initial encounter; M97.11XA Periprosthetic fracture around internal prosthetic right knee joint, initial encounter; I50.32 Chronic diastolic (congestive) heart failure; D84.9 Immunodeficiency, unspecified; M62.82 Rhabdomyolysis; N39.0 Urinary tract infection, site not specified; N17.9 Acute kidney failure, unspecified; Z66 Do not resuscitate; Z51.5 Encounter for palliative care; I11.0 Hypertensive heart disease with heart failure; M06.9 Rheumatoid arthritis, unspecified; I48.91 Unspecified atrial fibrillation; K21.9 Gastro-esophageal reflux disease without esophagitis; G25.81 Restless legs syndrome; W05.0XXA Fall from non-moving wheelchair, initial encounter; R79.1 Abnormal coagulation profile; M54.9 Dorsalgia, unspecified; G89.29 Other chronic pain; D64.9 Anemia, unspecified; J45.909 Unspecified asthma, uncomplicated; J45.40 Moderate persistent asthma, uncomplicated; B96.20 Unspecified Escherichia coli [E. coli] as the cause of diseases classified elsewhere; D69.6 Thrombocytopenia, unspecified; E87.5 Hyperkalemia; M81.0 Age-related osteoporosis without current pathological fracture; Z96.653 Presence of artificial knee joint, bilateral; Z95.0 Presence of cardiac pacemaker; Z79.2 Long term (current) use of antibiotics; Z98.890 Other specified postprocedural states; Z79.52 Long term (current) use of systemic steroids; Z99.3 Dependence on wheelchair; Z88.8 Allergy status to other drugs, medicaments and biological substances; Z79.51 Long term (current) use of inhaled steroids; Z88.2 Allergy status to sulfonamides; Z79.01 Long term (current) use of anticoagulants; Z79.899 Other long term (current) drug therapy
CPT/HCPCS: 29505; 36415; 36430; 51703; 70450; 71045; 73060; 73552; 73560-LT; 73560-RT; 73562-LT; 73562-RT; 74176; 80047; 80048; 80053; 80069; 81001; 82550; 83605; 83880; 84132; 84484; 85014; 85018; 85025; 85610; 86850; 86900; 86901; 86923; 87040; 87077; 87086; 87186; 93005; 93010; 94640; 94664; 94762; 96374-59; 96375-59; 99291-25; A9270; C9113; J0610; J0696; J1170; J1815; J2405; J2765; J3010; J7030; J7040; J7060; P9016